=== PATIENT | female | born 1940 | race African-American/Black ===

== ENCOUNTER 2017-11-02 23:11 | Inpatient (IN) | payer BC, MEDICARE ==
[~2017-11-02] VITALS: Ht 165.1 cm; Wt 72.6 kg
[2017-11-03] VITALS (35 sets, daily range): BP systolic 106–134; BP diastolic 51–79
[2017-11-03] MEDS ORDERED: SODIUM CHLORIDE 0.9% 1,000 ML IV ONE (00:33)
[2017-11-03 02:36] LABS: BASOPHILS % 0.2 % (0.0-2.0); HEMATOCRIT. 42.7 % (36.0-48.0); HEMOGLOBIN. 14.1 g/dL (12.0-16.0); LYMPHOCYTES % 1.6 % (20.0-50.0); MEAN CORPUSCULAR HEMOGLOBIN 29.8 pg (28.0-32.0); MEAN CORPUSCULAR VOLUME 90.4 fL (81.0-99.0); MEAN PLATELET VOLUME 8.9 fl (7.4-10.4); MONOCYTES % 9.7 % (2.0-8.0); NEUTROPHILS % 88.5 % (40.0-76.0); PLATELET 159 x1000/uL (130-400); RED BLOOD CELL COUNT 4.72 mill/uL (4.2-5.4); RED CELL DISTRIBUTION WIDTH 15.7 % (11.6-14.6)
[2017-11-03 02:37] LABS: CHLORIDE 108 mEq/L (98-107)
[2017-11-03 02:44] LABS: BETA HYDROXYBUTYRATE 9.5 mMol/L (0.0-0.3); PROTHROMBIN TIME 9.9 sec (9.4-11.6)
[2017-11-03] MEDS ORDERED: SODIUM CHLORIDE 0.9% 1,000 ML IV STA (02:51)
[2017-11-03] MEDS ORDERED: SODIUM CHLORIDE 0.9% 1000ML BAG (SEPSIS BOLUS) IV ONE (03:00)
[2017-11-03] MEDS ORDERED: INSULIN REGULAR (DRIP) 100 UNITS in SODIUM CHLORIDE 0.9% 100 ML IV ONE (03:30)
[2017-11-03 04:15] LABS: CHLORIDE 110 mEq/L (98-107)
[2017-11-03 04:21] LABS: PHOSPHORUS 4.1 mg/dL (2.5-4.9)
[2017-11-03 06:25] LABS: CHLORIDE 113 mEq/L (98-107)
[2017-11-03] MEDS ORDERED: INSULIN REGULAR (DRIP) 100 UNITS in SODIUM CHLORIDE 0.9% 100 ML IV SCH (08:44)
[2017-11-03] MEDS ORDERED: SODIUM CHLORIDE 0.9% 1,000 ML IV SCH (08:45)
[2017-11-03] MEDS ORDERED: ONDANSETRON HCL 4MG/2ML VIAL IV PRN (08:45)
[2017-11-03] MEDS ORDERED: DEXTROSE 50% WATER 50ML SYRINGE IV PRN ×2 (08:45)
[2017-11-03] MEDS ORDERED: ACETAMINOPHEN 325MG TABLET PO PRN (08:45)
[2017-11-03] MEDS: BLOOD SUGAR DIAGNOSTIC STRIP TEST SCH ×15 (09:43→23:00)
[2017-11-03] MEDS: PANTOPRAZOLE SODIUM 40 MG/VIAL IV SCH (09:43)
[2017-11-03] MEDS ORDERED: SODIUM CHLORIDE 0.45% 1,000 ML IV SCH (10:00)
[2017-11-03] MEDS: DEXT 5%/0.45% NACL 1000ML 1,000 ML IV SCH ×2 (10:06→19:56)
[2017-11-03] MEDS ORDERED: LANTUSUD SUBCUT (10:30)
[2017-11-03 10:35] LABS: CHLORIDE 119 mEq/L (98-107)
[2017-11-03 10:41] LABS: PHOSPHORUS 1.2 mg/dL (2.5-4.9)
[2017-11-03] MEDS ORDERED: INSU100I7 SQ (10:48)
[2017-11-03] MEDS ORDERED: LEVO50TA MT (12:55)
[2017-11-03] MEDS ORDERED: POTASSIUM PHOS,M-BASIC-D-BASIC 15 MMOL in DEXT 5% WATER 245 ML IV NR (13:00)
[2017-11-03] MEDS: DOCUSATE SODIUM 100MG CAPSULE PO SCH ×2 (13:12→17:22)
[2017-11-03] MEDS: LEVOTHYROXINE SODIUM 100MCG TABLET PO SCH (13:25)
[2017-11-03] MEDS ORDERED: LACTULOSE 20G/30ML UDC PO PRN (21:00)
[2017-11-04] VITALS (32 sets, daily range): BP systolic 99–130; BP diastolic 44–77
[2017-11-04 00:32] LABS: CLARITY URINE CLOUDY (CLEAR); COLOR URINE YELLOW (YELLOW); KETONES URINE 2+ (NEGATIVE); LEUKOCYTE ESTERASE URINE NEGATIVE (NEGATIVE); NITRITE URINE NEGATIVE (NEGATIVE); OCCULT BLOOD URINE TRACE (NEGATIVE); PH URINE 5.5 (4.5-8.0); PROTEIN URINE 1+ (NEGATIVE); SPECIFIC GRAVITY URINE 1.021 (1.005-1.030)
[2017-11-04 00:49] LABS: *BARBITURATES SCREEN URINE NEGATIVE (NEGATIVE); *BENZODIAZEPINES SCREEN URINE NEGATIVE (NEGATIVE); *COCAINE SCREEN URINE NEGATIVE (NEGATIVE); METHADONE URINE SCREEN NEGATIVE (NEGATIVE); OPIATES URINE SCREEN NEGATIVE (NEGATIVE)
[2017-11-04 00:50] LABS: CANNABINOID URINE SCREEN NEGATIVE (NEGATIVE); PHENCYCLIDINE URINE SCREEN NEGATIVE (NEGATIVE)
[2017-11-04 00:51] LABS: *AMPHETAMINES SCREEN URINE NEGATIVE (NEGATIVE)
[2017-11-04] MEDS: BLOOD SUGAR DIAGNOSTIC STRIP TEST SCH ×17 (01:00→16:24)
[2017-11-04 05:38] LABS: BASOPHILS % 0.3 % (0.0-2.0); EOSINOPHILS % 0.2 % (0.0-5.0); HEMOGLOBIN. 12.4 g/dL (12.0-16.0); LYMPHOCYTES % 7.1 % (20.0-50.0); MEAN CORPUSCULAR HEMOGLOBIN 29.5 pg (28.0-32.0); MONOCYTES % 12.3 % (2.0-8.0); NEUTROPHILS % 80.1 % (40.0-76.0); PLATELET 116 x1000/uL (130-400); RED CELL DISTRIBUTION WIDTH 15.2 % (11.6-14.6)
[2017-11-04 05:45] LABS: CHLORIDE 115 mEq/L (98-107)
[2017-11-04 05:53] LABS: PHOSPHORUS 1.4 mg/dL (2.5-4.9)
[2017-11-04] MEDS: DEXT 5%/0.45% NACL 1000ML 1,000 ML IV SCH ×2 (05:55→16:21)
[2017-11-04] MEDS: LEVOTHYROXINE SODIUM 100MCG TABLET PO SCH (05:56)
[2017-11-04] MEDS: PANTOPRAZOLE SODIUM 40 MG/VIAL IV SCH (09:18)
[2017-11-04] MEDS: DOCUSATE SODIUM 100MG CAPSULE PO SCH ×2 (09:18→17:18)
[2017-11-04] MEDS ORDERED: POTASSIUM PHOS,M-BASIC-D-BASIC 15 MMOL in DEXT 5% WATER 245 ML IV NR (11:00)
[2017-11-04] MEDS ORDERED: MAGNESIUM 2 G PREMIX 50 ML IV NR (11:30)
[2017-11-04 15:03] LABS: CHLORIDE 112 mEq/L (98-107)
[2017-11-04 15:08] LABS: PHOSPHORUS 2.1 mg/dL (2.5-4.9)
[2017-11-04] MEDS ORDERED: DEXTROSE 50% WATER 50ML SYRINGE IV PRN ×2 (17:00→21:15)
[2017-11-04] MEDS ORDERED: INSULIN LISPRO 100 UNITS/ML SUBCUT SCH (17:00)
[2017-11-04] MEDS ORDERED: INSULIN GLARGINE UD 100 UNITS/ML SYR SUBCUT NR (18:00)
[2017-11-04] MEDS ORDERED: BLOOD SUGAR DIAGNOSTIC STRIP TEST SCH (21:00)
[2017-11-04] MEDS ORDERED: INSULIN GLARGINE UD 100 UNITS/ML SYR SUBCUT SCH (21:00)
[2017-11-04 22:20] LABS: AMYLASE 56 IU/L (25-115)
[2017-11-05] VITALS (12 sets, daily range): BP systolic 100–140; BP diastolic 49–73
[2017-11-05] MEDS: BLOOD SUGAR DIAGNOSTIC STRIP TEST SCH ×5 (00:18→20:09)
[2017-11-05] MEDS: INSULIN LISPRO 100 UNITS/ML SUBCUT SCH ×8 (00:22→20:09)
[2017-11-05] MEDS: DEXT 5%/0.45% NACL 1000ML 1,000 ML IV SCH (02:11)
[2017-11-05 05:29] LABS: BASOPHILS % 0.2 % (0.0-2.0); EOSINOPHILS % 0.5 % (0.0-5.0); HEMATOCRIT. 34.9 % (36.0-48.0); HEMOGLOBIN. 11.9 g/dL (12.0-16.0); LYMPHOCYTES % 16.7 % (20.0-50.0); MEAN CORPUSCULAR HEMOGLOBIN 29.7 pg (28.0-32.0); MEAN CORPUSCULAR VOLUME 87.1 fL (81.0-99.0); MEAN PLATELET VOLUME 9.1 fl (7.4-10.4); MONOCYTES % 11.8 % (2.0-8.0); NEUTROPHILS % 70.8 % (40.0-76.0); PLATELET 94 x1000/uL (130-400); RED CELL DISTRIBUTION WIDTH 15.7 % (11.6-14.6)
[2017-11-05] MEDS: LEVOTHYROXINE SODIUM 100MCG TABLET PO SCH (05:36)
[2017-11-05 06:10] LABS: CHLORIDE 109 mEq/L (98-107)
[2017-11-05 06:19] LABS: PHOSPHORUS 1.6 mg/dL (2.5-4.9)
[2017-11-05] MEDS ORDERED: DEXTROSE 50% WATER 50ML SYRINGE IV PRN (08:30)
[2017-11-05] MEDS ORDERED: HEPARIN SODIUM 1,000 UNIT/1ML VIAL IV ONE (09:00)
[2017-11-05] MEDS: DOCUSATE SODIUM 100MG CAPSULE PO SCH ×2 (09:18→17:02)
[2017-11-05] MEDS ORDERED: INSULIN GLARGINE UD 100 UNITS/ML SYR SUBCUT SCH (10:00)
[2017-11-05] MEDS ORDERED: POTASSIUM PHOS,M-BASIC-D-BASIC 20 MMOL in DEXT 5% WATER 250 ML IV SCH (10:00)
[2017-11-05 17:53] LABS: PHOSPHORUS 1.9 mg/dL (2.5-4.9)
[2017-11-05] MEDS: SODIUM CHLORIDE 0.45% 1,000 ML IV SCH (18:40)
[2017-11-05] MEDS: INSULIN GLARGINE UD 100 UNITS/ML SYR SUBCUT SCH (22:22)
[2017-11-06] VITALS: BP 116/62
[2017-11-06 04:00] VITALS: BP 120/60
[2017-11-06] MEDS: LEVOTHYROXINE SODIUM 100MCG TABLET PO SCH (07:06)
[2017-11-06] MEDS: BLOOD SUGAR DIAGNOSTIC STRIP TEST SCH ×4 (07:07→20:44)
[2017-11-06] MEDS: INSULIN LISPRO 100 UNITS/ML SUBCUT SCH ×7 (07:07→20:44)
[2017-11-06] MEDS: SODIUM CHLORIDE 0.45% 1,000 ML IV SCH (07:09)
[2017-11-06 07:21] LABS: CHLORIDE 107 mEq/L (98-107)
[2017-11-06 08:03] VITALS: BP 122/68
[2017-11-06] MEDS ORDERED: POTASSIUM CHLORIDE 20MEQ/PACKET PO SCH (09:00)
[2017-11-06] MEDS: DOCUSATE SODIUM 100MG CAPSULE PO SCH ×2 (09:26→17:00)
[2017-11-06] MEDS: INSULIN GLARGINE UD 100 UNITS/ML SYR SUBCUT SCH ×2 (09:34→22:02)
[2017-11-06] MEDS ORDERED: POTASSIUM PHOS,M-BASIC-D-BASIC 20 MMOL in DEXT 5% WATER 243.3333 ML IV SCH (10:00)
[2017-11-06 12:10] VITALS: BP 115/63
[2017-11-06] MEDS: METOCLOPRAMIDE HCL 10MG TABLET PO SCH ×3 (12:20→21:00)
[2017-11-06] MEDS: POTASSIUM-SODIUM PHOSPHATE POWDER PACKET PO SCH ×2 (14:48→16:43)
[2017-11-06 16:00] VITALS: BP 104/62
[2017-11-06 19:55] LABS: PHOSPHORUS 2.2 mg/dL (2.5-4.9)
[2017-11-06 20:38] VITALS: BP 140/67
[2017-11-07 00:54] VITALS: BP 114/60
[2017-11-07 04:36] VITALS: BP 116/59
[2017-11-07] MEDS: METOCLOPRAMIDE HCL 10MG TABLET PO SCH ×3 (06:10→17:21)
[2017-11-07] MEDS: LEVOTHYROXINE SODIUM 100MCG TABLET PO SCH (06:11)
[2017-11-07] MEDS: BLOOD SUGAR DIAGNOSTIC STRIP TEST SCH ×3 (06:11→17:18)
[2017-11-07] MEDS: INSULIN LISPRO 100 UNITS/ML SUBCUT SCH ×6 (06:14→17:31)
[2017-11-07 07:50] LABS: CHLORIDE 106 mEq/L (98-107)
[2017-11-07 08:00] VITALS: BP 124/58
[2017-11-07] MEDS: POTASSIUM-SODIUM PHOSPHATE POWDER PACKET PO SCH ×2 (08:29→17:21)
[2017-11-07] MEDS: DOCUSATE SODIUM 100MG CAPSULE PO SCH ×2 (08:29→17:21)
[2017-11-07] MEDS: INSULIN GLARGINE UD 100 UNITS/ML SYR SUBCUT SCH (10:56)
[2017-11-07 12:00] VITALS: BP_SYST 157; BP_SYST 159; BP_DIAS 79
[2017-11-07] MEDS ORDERED: BUTALBITAL/ACETAMINOPHEN/CAFFEINE 50/325/40MG TABLET PO NR (12:15)
[2017-11-07] MEDS ORDERED: HYDROCORTISONE 1% RECTAL CREAM 30GM PR PRN (12:30)
[2017-11-07 15:56] VITALS: BP 135/67
[2017-11-07 16:00] VITALS: BP 135/67
== END 2017-11-07 19:50 | disposition home or self-care (01) | DRG 638 ==
LOC: ER 23:11 → MICUSO 11-03 03:12 → EDBEDREQ 11-03 03:35 → ENRESERV 11-03 06:59 → MICUSO 11-04 15:45 → 6WST 11-05 21:00
PROVIDERS: ADMIT Internal Medicine Critical Care Medicine; ATTEND Internal Medicine Critical Care Medicine
DX: E10.10 Type 1 diabetes mellitus with ketoacidosis without coma (principal); E46 Unspecified protein-calorie malnutrition; E10.42 Type 1 diabetes mellitus with diabetic polyneuropathy; K56.7 Ileus, unspecified; E83.39 Other disorders of phosphorus metabolism; E83.42 Hypomagnesemia; E86.0 Dehydration; E03.9 Hypothyroidism, unspecified; E78.5 Hyperlipidemia, unspecified; K59.00 Constipation, unspecified; E87.6 Hypokalemia; Z79.4 Long term (current) use of insulin; Z87.440 Personal history of urinary (tract) infections; Z91.14 Patient's other noncompliance with medication regimen; Z88.2 Allergy status to sulfonamides; Z79.899 Other long term (current) drug therapy; Z68.26 Body mass index [BMI] 26.0-26.9, adult
CPT/HCPCS: 36415; 71045; 74018; 74176; 76700; 80048; 80053; 80305; 81003; 82010; 82150; 82962; 83036; 83605; 83690; 83735; 84100; 84132; 84443; 84478; 85025; 85610; 87040; 87086; 93005; 93970; 96374; 97116; 97162; 99291; A6261; C9113; J1815; J2405; J3475; J3490; J7030; J7040; J7050; J7060; J8597; A4315

== ENCOUNTER 2020-01-26 15:21 | Inpatient (IN) | payer BC, MEDICARE ==
[~2020-01-26] VITALS: Ht 170.2 cm; Wt 61.7 kg
[~2020-01-26 15:21] MED LIST: INSU100I7 SQ; LANTUSUD SUBCUT; LEVO50TA MT; LIDOCAINE HCL/PF 1% 2ML VIAL ONE
[2020-01-26] MEDS ORDERED: SODIUM CHLORIDE 0.9% 500 ML IV ONE (16:04)
[2020-01-26 16:32] LABS: BASOPHILS % 0.2 % (0.0-2.0); HEMATOCRIT. 39.5 % (36.0-48.0); HEMOGLOBIN. 12.8 g/dL (12.0-16.0); LYMPHOCYTES % 13.2 % (20.0-50.0); MEAN CORPUSCULAR HEMOGLOBIN 29.9 pg (28.0-32.0); MEAN CORPUSCULAR VOLUME 92.1 fL (81.0-99.0); MEAN PLATELET VOLUME 9.1 fl (7.4-10.4); NEUTROPHILS % 80.6 % (40.0-76.0); PLATELET 168 x1000/uL (130-400); RED BLOOD CELL COUNT 4.28 mill/uL (4.2-5.4); RED CELL DISTRIBUTION WIDTH 14.4 % (11.6-14.6)
[2020-01-26 16:38] LABS: CHLORIDE 96 mEq/L (98-107)
[2020-01-26 16:40] LABS: PROTHROMBIN TIME 10.5 sec (9.6-11.0)
[2020-01-26 17:21] LABS: BG BASE EXCESS -18.2 mmol/L (-2.0-2.0); BG CARBOXYHEMOGLOBIN 0.2 % (0.5-1.5); BG FRACTION INSPIRED OXYGEN 21; BG HCO3 ACT 7.3 mmol/L (22.0-26.0); BG METHEMOGLOBIN 0.2 % (0.0-1.5); BG OXYHEMOGLOBIN 97.6 % (94.0-97.0); BG PCO2 18.1 mmHg (35.0-45.0); BG PH 7.222 (7.350-7.450); BG PO2 131.2 mmHg (75.0-100.0); BG SAMPLE SITE RIGHT RADIAL; BG TOTAL HEMOGLOBIN 12.3 g/dL (12.0-18.0); BG VENT MODE ROOM AIR
[2020-01-26] MEDS ORDERED: INSULIN REGULAR (DRIP) 100 UNITS in SODIUM CHLORIDE 0.9% 99 ML IV ONE ×2 (17:30→18:00)
[2020-01-26] MEDS ORDERED: SODIUM CHLORIDE 0.9% 1,000 ML IV ONE (17:30)
[2020-01-26] MEDS ORDERED: TRAZODONE HCL 50MG TABLET PO PRN (18:15)
[2020-01-26] MEDS ORDERED: ONDANSETRON HCL 4MG/2ML INJ IV PRN (18:15)
[2020-01-26] MEDS ORDERED: ACETAMINOPHEN 325MG TABLET PO PRN (18:15)
[2020-01-26] MEDS: SODIUM CHLORIDE 0.9% 1,000 ML IV SCH (18:25)
[2020-01-26 18:58] LABS: CLARITY URINE CLEAR (CLEAR); COLOR URINE YELLOW (YELLOW); KETONES URINE 4+ (NEGATIVE); LEUKOCYTE ESTERASE URINE NEGATIVE (NEGATIVE); NITRITE URINE NEGATIVE (NEGATIVE); OCCULT BLOOD URINE NEGATIVE (NEGATIVE); PROTEIN URINE NEGATIVE (NEGATIVE); SPECIFIC GRAVITY URINE 1.024 (1.005-1.030); UROBILINOGEN URINE 0.2 E.U./dL (0.2-1.0)
[2020-01-26] MEDS ORDERED: INSULIN GLARGINE UD 100 UNITS/ML SYR SUBCUT SCH ×2 (19:00→20:00)
[2020-01-26] MEDS: BLOOD SUGAR DIAGNOSTIC STRIP TEST SCH (21:00)
[2020-01-27] VITALS (8 sets, daily range): BP systolic 111–139; BP diastolic 60–76
[2020-01-27 03:39] LABS: BASOPHILS % 0.6 % (0.0-2.0); EOSINOPHILS % 0.2 % (0.0-5.0); HEMATOCRIT. 35.7 % (36.0-48.0); HEMOGLOBIN. 12.2 g/dL (12.0-16.0); LYMPHOCYTES % 12.9 % (20.0-50.0); MEAN CORPUSCULAR HEMOGLOBIN 30.1 pg (28.0-32.0); MEAN CORPUSCULAR VOLUME 87.7 fL (81.0-99.0); MEAN PLATELET VOLUME 8.6 fl (7.4-10.4); MONOCYTES % 7.1 % (2.0-8.0); NEUTROPHILS % 79.2 % (40.0-76.0); PLATELET 158 x1000/uL (130-400); RED BLOOD CELL COUNT 4.07 mill/uL (4.2-5.4)
[2020-01-27 03:43] LABS: CHLORIDE 112 mEq/L (98-107)
[2020-01-27 03:52] LABS: T4 FREE 0.78 ng/dL (0.76-1.46)
[2020-01-27] MEDS: DEXTROSE 50% WATER 50ML SYRINGE IV PRN (06:17)
[2020-01-27] MEDS: BLOOD SUGAR DIAGNOSTIC STRIP TEST SCH ×4 (07:30→20:47)
[2020-01-27] MEDS: LEVOTHYROXINE SODIUM 100MCG TABLET PO SCH (08:14)
[2020-01-27] MEDS: INSULIN LISPRO 100 UNITS/ML SUBCUT SCH ×4 (08:55→21:00)
[2020-01-27] MEDS: HEPARIN 5000 UNITS/ML VIAL SUBCUT SCH ×2 (08:56→20:47)
[2020-01-27] MEDS: SODIUM CHLORIDE 0.9% 1,000 ML IV SCH ×2 (11:13→18:49)
[2020-01-27] MEDS: ASPIRIN 81MG TABLET PO SCH (12:00)
[2020-01-27] MEDS: ATORVASTATIN CALCIUM 20MG TABLET PO SCH ×2 (20:47→20:48)
[2020-01-27] MEDS ORDERED: INSULIN GLARGINE UD 100 UNITS/ML SYR SUBCUT SCH ×3 (22:00)
[2020-01-28] VITALS (12 sets, daily range): BP systolic 116–148; BP diastolic 61–86
[2020-01-28 06:33] LABS: BASOPHILS % 0.4 % (0.0-2.0); EOSINOPHILS % 0.7 % (0.0-5.0); HEMATOCRIT. 36.2 % (36.0-48.0); HEMOGLOBIN. 12.4 g/dL (12.0-16.0); LYMPHOCYTES % 28.3 % (20.0-50.0); MEAN CORPUSCULAR HEMOGLOBIN 29.9 pg (28.0-32.0); MEAN CORPUSCULAR VOLUME 87.7 fL (81.0-99.0); MEAN PLATELET VOLUME 8.7 fl (7.4-10.4); MONOCYTES % 7.9 % (2.0-8.0); NEUTROPHILS % 62.7 % (40.0-76.0); PLATELET 139 x1000/uL (130-400); RED BLOOD CELL COUNT 4.13 mill/uL (4.2-5.4); RED CELL DISTRIBUTION WIDTH 13.9 % (11.6-14.6)
[2020-01-28 06:38] LABS: CHLORIDE 113 mEq/L (98-107)
[2020-01-28] MEDS: LEVOTHYROXINE SODIUM 100MCG TABLET PO SCH (06:41)
[2020-01-28] MEDS: BLOOD SUGAR DIAGNOSTIC STRIP TEST SCH ×4 (07:35→21:25)
[2020-01-28] MEDS: INSULIN LISPRO 100 UNITS/ML SUBCUT SCH ×4 (07:36→21:24)
[2020-01-28] MEDS: ASPIRIN 81MG TABLET PO SCH (09:00)
[2020-01-28] MEDS: SODIUM CHLORIDE 0.9% 1,000 ML IV SCH (09:02)
[2020-01-28] MEDS: HEPARIN 5000 UNITS/ML VIAL SUBCUT SCH ×2 (09:03→21:00)
[2020-01-28] MEDS ORDERED: POTASSIUM CHLORIDE 20MEQ TABLET SR PO SCH ×2 (11:00→16:00)
[2020-01-28] MEDS ORDERED: REGADENOSON 0.4 MG/5 ML IV SCH (11:45)
[2020-01-28] MEDS ORDERED: DOCUSATE SODIUM 100MG CAPSULE PO PRN (15:30)
[2020-01-28] MEDS ORDERED: MAGNESIUM HYDROXIDE 400MG/5ML 30ML UDC PO PRN (15:30)
[2020-01-28] MEDS ORDERED: SENNOSIDES/DOCUSATE SOD 8.6/50MG TABLET PO PRN (15:30)
[2020-01-28] MEDS: ATORVASTATIN CALCIUM 20MG TABLET PO SCH (21:00)
[2020-01-28] MEDS ORDERED: INSULIN GLARGINE UD 100 UNITS/ML SYR SUBCUT SCH (22:00)
[2020-01-29] VITALS (10 sets, daily range): BP systolic 115–147; BP diastolic 43–80
[2020-01-29] MEDS: LEVOTHYROXINE SODIUM 100MCG TABLET PO SCH ×2 (07:30→08:24)
[2020-01-29 07:44] LABS: CHLORIDE 105 mEq/L (98-107)
[2020-01-29 07:46] LABS: BASOPHILS % 0.5 % (0.0-2.0); EOSINOPHILS % 1.6 % (0.0-5.0); HEMATOCRIT. 39.6 % (36.0-48.0); HEMOGLOBIN. 13.4 g/dL (12.0-16.0); LYMPHOCYTES % 30.3 % (20.0-50.0); MEAN CORPUSCULAR HEMOGLOBIN 29.9 pg (28.0-32.0); MEAN CORPUSCULAR VOLUME 88.1 fL (81.0-99.0); MEAN PLATELET VOLUME 9.1 fl (7.4-10.4); MONOCYTES % 4.7 % (2.0-8.0); NEUTROPHILS % 62.9 % (40.0-76.0); PLATELET 132 x1000/uL (130-400); RED BLOOD CELL COUNT 4.49 mill/uL (4.2-5.4); RED CELL DISTRIBUTION WIDTH 14.5 % (11.6-14.6)
[2020-01-29] MEDS: HEPARIN 5000 UNITS/ML VIAL SUBCUT SCH ×2 (08:24→08:27)
[2020-01-29] MEDS: INSULIN LISPRO 100 UNITS/ML SUBCUT SCH ×3 (08:25→18:00)
[2020-01-29] MEDS: ASPIRIN 81MG TABLET PO SCH (08:26)
[2020-01-29] MEDS: BLOOD SUGAR DIAGNOSTIC STRIP TEST SCH ×3 (08:26→17:30)
[2020-01-29] MEDS ORDERED: DOCU-150 PO (12:17)
[2020-01-29] MEDS ORDERED: MOM PO (12:17)
[2020-01-29] MEDS ORDERED: ASPI-1160 PO (12:17)
[2020-01-29] MEDS ORDERED: ATOR20TA PO (12:17)
[2020-01-29] MEDS ORDERED: SENN-3 PO (12:17)
[2020-01-29] MEDS ORDERED: LANTUSUD SUBCUT (12:17)
[2020-01-29] MEDS: DEXTROSE 50% WATER 50ML SYRINGE IV PRN (12:39)
[2020-01-29] MEDS ORDERED: REGADENOSON 0.4 MG/5 ML IV ONE (14:08)
[2020-01-29] MEDS ORDERED: INSULIN GLARGINE UD 100 UNITS/ML SYR SUBCUT SCH (22:00)
== END 2020-01-29 18:10 | disposition home or self-care (01) | DRG 638 ==
LOC: ER 15:21 → MICUSO 18:43 → 5EST 01-27 05:23
PROVIDERS: ADMIT Internal Medicine; ATTEND Internal Medicine
DX: E11.10 Type 2 diabetes mellitus with ketoacidosis without coma (principal); E87.4 Mixed disorder of acid-base balance; E87.1 Hypo-osmolality and hyponatremia; I10 Essential (primary) hypertension; E87.8 Other disorders of electrolyte and fluid balance, not elsewhere classified; E87.5 Hyperkalemia; K31.84 Gastroparesis; E78.5 Hyperlipidemia, unspecified; E11.43 Type 2 diabetes mellitus with diabetic autonomic (poly)neuropathy; E03.9 Hypothyroidism, unspecified; R74.0 Nonspecific elevation of levels of transaminase and lactic acid dehydrogenase [LDH]; E87.6 Hypokalemia; Z88.2 Allergy status to sulfonamides; Z79.4 Long term (current) use of insulin; Z79.899 Other long term (current) drug therapy; Z79.890 Hormone replacement therapy; Z91.14 Patient's other noncompliance with medication regimen; Z79.82 Long term (current) use of aspirin
CPT/HCPCS: 36415; 36600; 71045; 78452; 80053; 81003; 82010; 82375; 82805; 82962; 83036; 83735; 83880; 84439; 84443; 84484; 85025; 93005; 93017; 93306; 96365; 99285; A9500; J1644; J1815; J2785; J3490; J7030; J7050

== ENCOUNTER 2020-03-12 03:37 | Inpatient (IN) | payer BC, MEDICARE ==
[~2020-03-12] VITALS: Ht 157.5 cm; Wt 72.6 kg
[~2020-03-12 03:37] MED LIST changes: +ASPI-1160 PO; +ATOR20TA PO; +DOCU-150 PO; -LIDOCAINE HCL/PF 1% 2ML VIAL ONE; +MOM PO; +SENN-3 PO
[2020-03-12] MEDS ORDERED: SODIUM CHLORIDE 0.9% 1,000 ML IV ONE (03:49)
[2020-03-12 04:22] LABS: BG BASE EXCESS -5.2 mmol/L (-2.0-2.0); BG CARBOXYHEMOGLOBIN 0.4 % (0.5-1.5); BG DEOXYHEMOGLOBIN 2.7 % (0.0-5.0); BG FRACTION INSPIRED OXYGEN 21; BG HCO3 ACT 18.1 mmol/L (22.0-26.0); BG METHEMOGLOBIN 0.3 % (0.0-1.5); BG OXYGEN SATURATION 97.3 % (92.0-98.5); BG OXYHEMOGLOBIN 96.6 % (94.0-97.0); BG PCO2 28.4 mmHg (35.0-45.0); BG PH 7.422 (7.350-7.450); BG PO2 101.7 mmHg (75.0-100.0); BG SAMPLE SITE RIGHT BRACHIAL; BG TOTAL HEMOGLOBIN 11.5 g/dL (12.0-18.0); BG VENT MODE ROOM AIR
[2020-03-12 04:36] LABS: BASOPHILS % 0.3 % (0.0-2.0); EOSINOPHILS % 0.9 % (0.0-5.0); HEMATOCRIT. 34.3 % (36.0-48.0); HEMOGLOBIN. 11.6 g/dL (12.0-16.0); LYMPHOCYTES % 38.5 % (20.0-50.0); MEAN CORPUSCULAR HEMOGLOBIN 30.6 pg (28.0-32.0); MEAN CORPUSCULAR VOLUME 90.7 fL (81.0-99.0); MONOCYTES % 2.9 % (2.0-8.0); NEUTROPHILS % 57.4 % (40.0-76.0); PLATELET 138 x1000/uL (130-400); RED BLOOD CELL COUNT 3.78 mill/uL (4.2-5.4); RED CELL DISTRIBUTION WIDTH 13.7 % (11.6-14.6)
[2020-03-12 04:43] LABS: CHLORIDE 102 mEq/L (98-107)
[2020-03-12 04:47] LABS: PROTHROMBIN TIME 10.4 sec (9.6-11.0)
[2020-03-12 04:52] LABS: BETA HYDROXYBUTYRATE 1.7 mMol/L (0.0-0.3)
[2020-03-12 05:02] LABS: CLARITY URINE CLOUDY (CLEAR); COLOR URINE YELLOW (YELLOW); KETONES URINE 1+ (NEGATIVE); LEUKOCYTE ESTERASE URINE 3+ (NEGATIVE); NITRITE URINE NEGATIVE (NEGATIVE); OCCULT BLOOD URINE TRACE (NEGATIVE); PH URINE 7.5 (4.5-8.0); PROTEIN URINE NEGATIVE (NEGATIVE); SPECIFIC GRAVITY URINE 1.017 (1.005-1.030); UROBILINOGEN URINE 0.2 E.U./dL (0.2-1.0)
[2020-03-12] MEDS: SODIUM CHLORIDE 0.9% 1,000 ML IV SCH ×2 (07:23→17:23)
[2020-03-12] MEDS ORDERED: DOCUSATE SODIUM 100MG CAPSULE PO PRN (07:30)
[2020-03-12] MEDS ORDERED: ONDANSETRON HCL 4MG/2ML INJ IV PRN (07:30)
[2020-03-12] MEDS ORDERED: ACETAMINOPHEN 650MG SUPP PR PRN (07:30)
[2020-03-12] MEDS ORDERED: MAGNESIUM HYDROXIDE 400MG/5ML 30ML UDC PO PRN (07:30)
[2020-03-12] MEDS: LEVOTHYROXINE SODIUM 100MCG TABLET PO SCH (07:50)
[2020-03-12] MEDS ORDERED: DEXTROSE 50% WATER 50ML SYRINGE IV PRN (08:15)
[2020-03-12 08:18] LABS: BASOPHILS % 0.3 % (0.0-2.0); EOSINOPHILS % 0.2 % (0.0-5.0); HEMATOCRIT. 39.4 % (36.0-48.0); HEMOGLOBIN. 13.1 g/dL (12.0-16.0); LYMPHOCYTES % 9.7 % (20.0-50.0); MEAN CORPUSCULAR HEMOGLOBIN 29.8 pg (28.0-32.0); MEAN CORPUSCULAR VOLUME 89.3 fL (81.0-99.0); MEAN PLATELET VOLUME 8.4 fl (7.4-10.4); MONOCYTES % 4.2 % (2.0-8.0); NEUTROPHILS % 85.6 % (40.0-76.0); PLATELET 136 x1000/uL (130-400); RED BLOOD CELL COUNT 4.41 mill/uL (4.2-5.4)
[2020-03-12 08:26] LABS: CHLORIDE 103 mEq/L (98-107)
[2020-03-12] MEDS: INSULIN LISPRO (HIGH DOSE) 100 UNITS/ML SUBCUT SCH ×4 (08:49→22:02)
[2020-03-12] MEDS: ENOXAPARIN 40MG/0.4ML SYR SUBCUT SCH (09:00)
[2020-03-12] MEDS: ASPIRIN 81MG TABLET PO SCH (09:00)
[2020-03-12] MEDS: DOCUSATE SODIUM 100MG CAPSULE PO SCH ×2 (09:00→17:00)
[2020-03-12] MEDS: BLOOD SUGAR DIAGNOSTIC STRIP TEST SCH ×4 (09:59→21:17)
[2020-03-12] MEDS ORDERED: CEFTRIAXONE 2 G PREMIX 50 ML IV SCH (11:00)
[2020-03-12] MEDS: INSULIN GLARGINE UD 100 UNITS/ML SYR SUBCUT SCH ×3 (11:30→22:00)
[2020-03-12 20:00] VITALS: BP 142/76
[2020-03-12 20:30] VITALS: BP 142/76
[2020-03-12] MEDS ORDERED: INSULIN GLARGINE UD 100 UNITS/ML SYR SUBCUT SCH (21:00)
[2020-03-12] MEDS: ATORVASTATIN CALCIUM 20MG TABLET PO SCH (21:00)
[2020-03-12] MEDS ORDERED: DIPHENHYDRAMINE 25MG CAPSULE PO PRN (21:30)
[2020-03-13] VITALS: BP 115/67
[2020-03-13 04:00] VITALS: BP 116/63
[2020-03-13] MEDS: SODIUM CHLORIDE 0.9% 1,000 ML IV SCH (04:17)
[2020-03-13] MEDS ORDERED: INSULIN GLARGINE UD 100 UNITS/ML SYR SUBCUT SCH (06:30)
[2020-03-13] MEDS: INSULIN LISPRO (HIGH DOSE) 100 UNITS/ML SUBCUT SCH ×4 (06:54→22:13)
[2020-03-13] MEDS: BLOOD SUGAR DIAGNOSTIC STRIP TEST SCH ×4 (06:55→20:38)
[2020-03-13] MEDS: LEVOTHYROXINE SODIUM 100MCG TABLET PO SCH (06:55)
[2020-03-13 07:15] LABS: HEMATOCRIT 37.5 % (36.0-48.0); HEMOGLOBIN 12.6 g/dL (12.0-16.0); MEAN CORPUSCULAR HEMOGLOBIN 29.9 pg (28.0-32.0); MEAN CORPUSCULAR VOLUME 89.1 fL (81.0-99.0); PLATELET 139 x1000/uL (130-400); RED CELL DISTRIBUTION WIDTH 13.8 % (11.6-14.6)
[2020-03-13 07:29] LABS: CHLORIDE 107 mEq/L (98-107)
[2020-03-13 08:00] VITALS: BP 140/66
[2020-03-13] MEDS: ASPIRIN 81MG TABLET PO SCH (09:00)
[2020-03-13] MEDS: ENOXAPARIN 40MG/0.4ML SYR SUBCUT SCH (09:11)
[2020-03-13] MEDS: CEFTRIAXONE 2 G in DEXTROSE 5% WATER 50 ML IV SCH (09:11)
[2020-03-13] MEDS: DOCUSATE SODIUM 100MG CAPSULE PO SCH ×2 (09:11→17:21)
[2020-03-13] MEDS: INSULIN GLARGINE UD 100 UNITS/ML SYR SUBCUT SCH ×2 (09:36→23:54)
[2020-03-13 12:00] VITALS: BP 117/62
[2020-03-13 16:00] VITALS: BP 139/76
[2020-03-13 16:19] LABS: CREATINE KINASE MB FRACTION 1.5 ng/mL (0.5-3.6)
[2020-03-13] MEDS: METFORMIN HCL 500MG TABLET PO SCH (17:02)
[2020-03-13 20:00] VITALS: BP 138/69
[2020-03-13] MEDS: ATORVASTATIN CALCIUM 20MG TABLET PO SCH ×2 (20:38→20:44)
[2020-03-14] VITALS: BP 147/90
[2020-03-14] MEDS: SODIUM CHLORIDE 0.9% 1,000 ML IV SCH ×2 (00:32→00:39)
[2020-03-14 04:00] VITALS: BP 121/74
[2020-03-14] MEDS: BLOOD SUGAR DIAGNOSTIC STRIP TEST SCH ×3 (06:16→18:08)
[2020-03-14] MEDS: LEVOTHYROXINE SODIUM 100MCG TABLET PO SCH (06:16)
[2020-03-14] MEDS: METFORMIN HCL 500MG TABLET PO SCH (06:17)
[2020-03-14] MEDS: INSULIN LISPRO (HIGH DOSE) 100 UNITS/ML SUBCUT SCH ×3 (06:57→18:08)
[2020-03-14 08:00] VITALS: BP 116/60
[2020-03-14] MEDS: ASPIRIN 81MG TABLET PO SCH ×2 (08:58→09:00)
[2020-03-14] MEDS: ENOXAPARIN 40MG/0.4ML SYR SUBCUT SCH (08:59)
[2020-03-14] MEDS: DOCUSATE SODIUM 100MG CAPSULE PO SCH (08:59)
[2020-03-14 09:29] LABS: BASOPHILS % 0.6 % (0.0-2.0); EOSINOPHILS % 1.3 % (0.0-5.0); HEMATOCRIT. 41.3 % (36.0-48.0); HEMOGLOBIN. 13.8 g/dL (12.0-16.0); LYMPHOCYTES % 27.9 % (20.0-50.0); MEAN CORPUSCULAR HEMOGLOBIN 29.7 pg (28.0-32.0); MEAN CORPUSCULAR VOLUME 88.9 fL (81.0-99.0); MEAN PLATELET VOLUME 8.6 fl (7.4-10.4); MONOCYTES % 5.7 % (2.0-8.0); NEUTROPHILS % 64.5 % (40.0-76.0); PLATELET 163 x1000/uL (130-400); RED BLOOD CELL COUNT 4.64 mill/uL (4.2-5.4); RED CELL DISTRIBUTION WIDTH 13.9 % (11.6-14.6)
[2020-03-14 09:30] LABS: CHLORIDE 107 mEq/L (98-107)
[2020-03-14 09:40] LABS: T4 FREE 0.78 ng/dL (0.76-1.46)
[2020-03-14 12:00] VITALS: BP 76/40
[2020-03-14] MEDS: INSULIN GLARGINE UD 100 UNITS/ML SYR SUBCUT SCH (12:49)
[2020-03-14] MEDS: CEFTRIAXONE 2 G in DEXTROSE 5% WATER 50 ML IV SCH (12:50)
[2020-03-14] MEDS ORDERED: LANC1COM2 MC (13:17)
[2020-03-14] MEDS ORDERED: INSLIS SUBCUT (13:17)
[2020-03-14] MEDS ORDERED: ATOR20TA MT (13:17)
[2020-03-14] MEDS ORDERED: FLAS1EAC2 TP (13:17)
[2020-03-14] MEDS ORDERED: LEVO100T MT (13:17)
[2020-03-14] MEDS ORDERED: INSU100I28 SQ (13:17)
[2020-03-14] MEDS ORDERED: CIPR-213 MT (13:17)
[2020-03-14] MEDS ORDERED: ASPI-1497 MT (13:17)
[2020-03-14 16:00] VITALS: BP 144/73
[2020-03-14 16:48] VITALS: BP 144/73
== END 2020-03-14 18:18 | disposition home or self-care (01) | DRG 637 ==
LOC: ER 03:56 → UNDOADMIN 05:31 → 6EST 05:31 → ENRESERV 07:28 → CANRESERV 07:28 → EDBEDREQSVC 08:41 → ENRESERV 19:56 → 6EST 03-13 05:31 → 8WST 03-13 22:52
PROVIDERS: ADMIT Ophthalmology; ATTEND Ophthalmology
DX: E10.65 Type 1 diabetes mellitus with hyperglycemia (principal); I50.33 Acute on chronic diastolic (congestive) heart failure; I21.4 Non-ST elevation (NSTEMI) myocardial infarction; E87.1 Hypo-osmolality and hyponatremia; G93.40 Encephalopathy, unspecified; I42.9 Cardiomyopathy, unspecified; N39.0 Urinary tract infection, site not specified; I95.9 Hypotension, unspecified; F99 Mental disorder, not otherwise specified; D64.9 Anemia, unspecified; E03.9 Hypothyroidism, unspecified; E78.5 Hyperlipidemia, unspecified; I11.0 Hypertensive heart disease with heart failure; I25.10 Atherosclerotic heart disease of native coronary artery without angina pectoris; Z79.4 Long term (current) use of insulin; Z79.899 Other long term (current) drug therapy; Z88.2 Allergy status to sulfonamides; Z79.82 Long term (current) use of aspirin
CPT/HCPCS: 36415; 36600; 71045; 80048; 80053; 80061; 81003; 82010; 82375; 82550; 82553; 82805; 82962; 83036; 83605; 84145; 84439; 84443; 84481; 84484; 85025; 85027; 93005; 93306; 97116; 97161; 99291; J0696; J1650; J1815; J7030; J7060

== ENCOUNTER 2020-05-10 16:53 | Inpatient (IN) | payer BC, MEDICARE ==
[~2020-05-10] VITALS: Ht 167.6 cm; Wt 69.1 kg
[~2020-05-10 16:53] MED LIST changes: +ASPI-1497 MT; +ATOR20TA MT; +CIPR-213 MT; +FLAS1EAC2 TP; +INSLIS SUBCUT; +INSU100I28 SQ; +LANC1COM2 MC; -LANTUSUD SUBCUT; +LEVO100T MT; -SENN-3 PO
[2020-05-10] MEDS ORDERED: SODIUM CHLORIDE 0.9% 1,000 ML IV ONE ×2 (17:30→19:00)
[2020-05-10 18:08] LABS: BASOPHILS % 0.5 % (0.0-2.0); EOSINOPHILS % 1.2 % (0.0-5.0); HEMATOCRIT. 39.2 % (36.0-48.0); HEMOGLOBIN. 13.1 g/dL (12.0-16.0); LYMPHOCYTES % 18.5 % (20.0-50.0); MEAN CORPUSCULAR HEMOGLOBIN 29.9 pg (28.0-32.0); MEAN CORPUSCULAR VOLUME 89.5 fL (81.0-99.0); MEAN PLATELET VOLUME 10.2 fl (7.4-10.4); MONOCYTES % 5.3 % (2.0-8.0); NEUTROPHILS % 74.5 % (40.0-76.0); PLATELET 139 x1000/uL (130-400); RED BLOOD CELL COUNT 4.38 mill/uL (4.2-5.4); RED CELL DISTRIBUTION WIDTH 13.3 % (11.6-14.6)
[2020-05-10 18:17] LABS: CHLORIDE 96 mEq/L (98-107)
[2020-05-10 18:23] LABS: PROTHROMBIN TIME 10.1 sec (9.6-11.0)
[2020-05-10] MEDS ORDERED: INSULIN REGULAR (DRIP) 100 UNITS in SODIUM CHLORIDE 0.9% 99 ML IV ONE ×2 (20:00→20:30)
[2020-05-10] MEDS ORDERED: INSULIN REGULAR 0.5UNIT/ML SYR(NEO) IV ONE (20:00)
[2020-05-10] MEDS ORDERED: INSULIN REGULAR (HUMULIN R) 300UNITS/3ML IV SCH (20:15)
[2020-05-10 21:10] LABS: CLARITY URINE CLEAR (CLEAR); COLOR URINE YELLOW (YELLOW); KETONES URINE 1+ (NEGATIVE); LEUKOCYTE ESTERASE URINE NEGATIVE (NEGATIVE); NITRITE URINE NEGATIVE (NEGATIVE); OCCULT BLOOD URINE NEGATIVE (NEGATIVE); PROTEIN URINE NEGATIVE (NEGATIVE); SPECIFIC GRAVITY URINE 1.033 (1.005-1.030); UROBILINOGEN URINE 0.2 E.U./dL (0.2-1.0)
[2020-05-11] VITALS (8 sets, daily range): BP systolic 119–133; BP diastolic 60–84
[2020-05-11] MEDS ORDERED: ACETAMINOPHEN 325MG TABLET PO PRN (00:30)
[2020-05-11] MEDS: SODIUM CHLORIDE 0.9% 1,000 ML IV SCH ×3 (01:20→20:51)
[2020-05-11] MEDS ORDERED: INSULIN REGULAR (HUMULIN R) 300UNITS/3ML SUBCUT ONE (07:05)
[2020-05-11] MEDS ORDERED: DEXTROSE 50% WATER 50ML SYRINGE IV PRN ×2 (07:15→12:45)
[2020-05-11] MEDS ORDERED: INSULIN REGULAR HUMAN (HIGH DOSE) 100 UNITS/ML 3ML VIAL SUBCUT SCH (08:20)
[2020-05-11] MEDS: BLOOD SUGAR DIAGNOSTIC STRIP TEST SCH ×4 (09:00→20:53)
[2020-05-11] MEDS: ASPIRIN 81MG EC TABLET PO SCH (09:00)
[2020-05-11] MEDS: DOCUSATE SODIUM 100MG CAPSULE PO SCH ×2 (09:39→16:39)
[2020-05-11] MEDS: LEVOTHYROXINE SODIUM 100MCG TABLET PO SCH (09:39)
[2020-05-11] MEDS: ENOXAPARIN 40MG/0.4ML SYR SUBCUT SCH (09:40)
[2020-05-11] MEDS ORDERED: INSULIN GLARGINE UD 100 UNITS/ML SYR SUBCUT SCH ×2 (10:00→23:00)
[2020-05-11] MEDS ORDERED: HYDROCODONE/ACETAMINOPHEN 5/325MG TABLET PO PRN (13:30)
[2020-05-11] MEDS ORDERED: LORAZEPAM 2MG/ML CPJ IV PRN (13:30)
[2020-05-11] MEDS ORDERED: IPRATROPIUM/ALBUTEROL 0.5-3(2.5)MG/3ML NEB HHN PRN (13:30)
[2020-05-11] MEDS ORDERED: LACTULOSE 20G/30ML UDC PO PRN (13:30)
[2020-05-11] MEDS ORDERED: BISACODYL 10MG SUPP PR PRN (13:30)
[2020-05-11] MEDS: INSULIN LISPRO 100 UNITS/ML SUBCUT SCH ×3 (13:46→20:52)
[2020-05-11] MEDS: LOSARTAN POTASSIUM 25 MG TABLET PO SCH (14:35)
[2020-05-11] MEDS ORDERED: BLOOD SUGAR DIAGNOSTIC STRIP TEST SCH (16:50)
[2020-05-11 18:06] LABS: BASOPHILS % 0.4 % (0.0-2.0); EOSINOPHILS % 1.5 % (0.0-5.0); HEMATOCRIT. 37.5 % (36.0-48.0); HEMOGLOBIN. 12.8 g/dL (12.0-16.0); LYMPHOCYTES % 29.1 % (20.0-50.0); MEAN CORPUSCULAR HEMOGLOBIN 30.5 pg (28.0-32.0); MEAN CORPUSCULAR VOLUME 89.6 fL (81.0-99.0); MEAN PLATELET VOLUME 9.7 fl (7.4-10.4); MONOCYTES % 5.9 % (2.0-8.0); NEUTROPHILS % 63.1 % (40.0-76.0); PLATELET 141 x1000/uL (130-400); RED BLOOD CELL COUNT 4.19 mill/uL (4.2-5.4); RED CELL DISTRIBUTION WIDTH 13.2 % (11.6-14.6)
[2020-05-11 18:18] LABS: CHLORIDE 104 mEq/L (98-107)
[2020-05-11 18:25] LABS: LDL CHOLESTEROL 95 mg/dL (5-100)
[2020-05-11 18:26] LABS: HDL CHOLESTEROL 71 mg/dL (40-59)
[2020-05-11 18:27] LABS: T4 FREE 0.88 ng/dL (0.76-1.46)
[2020-05-11] MEDS: METOPROLOL TARTRATE 25MG TABLET PO SCH (20:51)
[2020-05-11] MEDS ORDERED: ATORVASTATIN CALCIUM 20MG TABLET PO SCH (21:00)
[2020-05-12] VITALS (8 sets, daily range): BP systolic 114–140; BP diastolic 61–93
[2020-05-12 05:59] LABS: BASOPHILS % 0.4 % (0.0-2.0); EOSINOPHILS % 2.2 % (0.0-5.0); HEMATOCRIT. 35.3 % (36.0-48.0); HEMOGLOBIN. 12.1 g/dL (12.0-16.0); LYMPHOCYTES % 35.5 % (20.0-50.0); MEAN CORPUSCULAR HEMOGLOBIN 30.2 pg (28.0-32.0); MEAN CORPUSCULAR VOLUME 88.4 fL (81.0-99.0); MEAN PLATELET VOLUME 9.5 fl (7.4-10.4); MONOCYTES % 7.1 % (2.0-8.0); NEUTROPHILS % 54.8 % (40.0-76.0); PLATELET 133 x1000/uL (130-400); RED CELL DISTRIBUTION WIDTH 13.7 % (11.6-14.6)
[2020-05-12] MEDS: LEVOTHYROXINE SODIUM 100MCG TABLET PO SCH (06:21)
[2020-05-12] MEDS: SODIUM CHLORIDE 0.9% 1,000 ML IV SCH (06:22)
[2020-05-12] MEDS: BLOOD SUGAR DIAGNOSTIC STRIP TEST SCH ×2 (06:22→11:51)
[2020-05-12 06:35] LABS: CHLORIDE 109 mEq/L (98-107)
[2020-05-12 06:43] LABS: CREATINE KINASE 47 IU/L (26-192)
[2020-05-12 06:45] LABS: CREATINE KINASE MB FRACTION 1.4 ng/mL (0.5-3.6)
[2020-05-12] MEDS: INSULIN LISPRO 100 UNITS/ML SUBCUT SCH ×2 (08:21→12:27)
[2020-05-12] MEDS: METOPROLOL TARTRATE 25MG TABLET PO SCH (08:21)
[2020-05-12] MEDS: LOSARTAN POTASSIUM 25 MG TABLET PO SCH (08:21)
[2020-05-12] MEDS: DOCUSATE SODIUM 100MG CAPSULE PO SCH (08:21)
[2020-05-12] MEDS: ASPIRIN 81MG EC TABLET PO SCH (08:22)
[2020-05-12] MEDS: ENOXAPARIN 40MG/0.4ML SYR SUBCUT SCH (08:22)
[2020-05-12] MEDS ORDERED: BLOO-1465 MT (13:38)
[2020-05-12] MEDS ORDERED: INSULIN GLARGINE UD 100 UNITS/ML SYR SUBCUT NR (14:30)
[2020-05-12] MEDS ORDERED: INSULIN GLARGINE UD 100 UNITS/ML SYR SUBCUT SCH (22:00)
== END 2020-05-12 16:25 | disposition home or self-care (01) | DRG 280 ==
LOC: ER 16:53 → 3WST 23:01 → EDBEDREQTM 23:04 → EDBEDREQ 23:04 → ENRESERV 05-11 07:57
PROVIDERS: ADMIT Ophthalmology; ATTEND Ophthalmology
DX: I21.4 Non-ST elevation (NSTEMI) myocardial infarction (principal); I50.33 Acute on chronic diastolic (congestive) heart failure; E87.1 Hypo-osmolality and hyponatremia; E87.2 Acidosis; I42.9 Cardiomyopathy, unspecified; E11.65 Type 2 diabetes mellitus with hyperglycemia; E03.9 Hypothyroidism, unspecified; E78.00 Pure hypercholesterolemia, unspecified; E78.5 Hyperlipidemia, unspecified; I11.0 Hypertensive heart disease with heart failure; J45.909 Unspecified asthma, uncomplicated; Z79.4 Long term (current) use of insulin; Z79.890 Hormone replacement therapy; Z83.3 Family history of diabetes mellitus; Z91.14 Patient's other noncompliance with medication regimen; Z91.19 Patient's noncompliance with other medical treatment and regimen; Z88.2 Allergy status to sulfonamides; Z79.82 Long term (current) use of aspirin; Z79.2 Long term (current) use of antibiotics; Z79.899 Other long term (current) drug therapy
CPT/HCPCS: 36415; 71045; 80048; 80053; 80061; 81003; 82550; 82553; 82962; 83036; 83605; 84145; 84439; 84443; 84484; 85025; 93005; 93306; 99291; J1650; J1815; J7030; J7050

== ENCOUNTER 2020-08-29 18:20 | Inpatient (IN) | payer BC, MEDICARE ==
[~2020-08-29] VITALS: Ht 167.6 cm; Wt 64.0 kg
[2020-08-29] MEDS: SODIUM CHLORIDE 0.9% 1,000 ML IV SCH (02:00)
[~2020-08-29 18:20] MED LIST changes: -ASPI-1497 MT; -ATOR20TA MT; +BLOO-1465 MT; -CIPR-213 MT; -LEVO100T MT
[2020-08-29] MEDS ORDERED: SODIUM CHLORIDE 0.9% 1,000 ML IV ONE ×2 (19:15→21:15)
[2020-08-29 21:30] LABS: HEMATOCRIT. 40.2 % (36.0-48.0); HEMOGLOBIN. 12.8 g/dL (12.0-16.0); MEAN CORPUSCULAR HEMOGLOBIN 28.8 pg (28.0-32.0); MEAN CORPUSCULAR VOLUME 90.9 fL (81.0-99.0); MEAN PLATELET VOLUME 9.2 fl (7.4-10.4); PLATELET 157 x1000/uL (130-400); RED BLOOD CELL COUNT 4.43 mill/uL (4.2-5.4); RED CELL DISTRIBUTION WIDTH 14.6 % (11.6-14.6)
[2020-08-29 21:37] LABS: CHLORIDE 94 mEq/L (98-107)
[2020-08-29 21:48] LABS: PLATELET ESTIMATE NORMAL
[2020-08-29 21:52] LABS: CLARITY URINE CLEAR (CLEAR); COLOR URINE YELLOW (YELLOW); KETONES URINE 3+ (NEGATIVE); LEUKOCYTE ESTERASE URINE NEGATIVE (NEGATIVE); NITRITE URINE NEGATIVE (NEGATIVE); OCCULT BLOOD URINE NEGATIVE (NEGATIVE); PROTEIN URINE NEGATIVE (NEGATIVE); SPECIFIC GRAVITY URINE 1.026 (1.005-1.030); UROBILINOGEN URINE 0.2 E.U./dL (0.2-1.0)
[2020-08-29 22:03] LABS: BETA HYDROXYBUTYRATE 12.4 mMol/L (0.0-0.3)
[2020-08-29] MEDS ORDERED: SODIUM CHLORIDE 0.9% 1,000 ML IV STA (22:06)
[2020-08-29] MEDS ORDERED: SODIUM BICARBONATE 8.4% 1 MEQ/ML 50ML SYR IV ONE (22:15)
[2020-08-29] MEDS ORDERED: SODIUM POLYSTYRENE SULFONATE 15 G/60 ML BOT PO ONE (22:15)
[2020-08-29] MEDS ORDERED: INSULIN REGULAR (DRIP) 100 UNITS in SODIUM CHLORIDE 0.9% 100 ML IV ONE (23:00)
[2020-08-29] MEDS ORDERED: INSULIN REGULAR (DRIP) 100 UNITS in SODIUM CHLORIDE 0.9% 100 ML IV SCH (23:15)
[2020-08-29] MEDS ORDERED: ACETAMINOPHEN 650MG SUPP PR PRN (23:15)
[2020-08-29] MEDS ORDERED: ONDANSETRON HCL 4MG/2ML INJ IV PRN (23:15)
[2020-08-29] MEDS ORDERED: DEXTROSE 50% WATER 50ML SYRINGE IV PRN ×2 (23:45)
[2020-08-29 23:49] LABS: CHLORIDE 96 mEq/L (98-107)
[2020-08-30] VITALS (36 sets, daily range): BP systolic 91–120; BP diastolic 46–78
[2020-08-30] MEDS ORDERED: LEVOFLOXACIN 500MG PREMIX 100 ML IV NR
[2020-08-30] MEDS ORDERED: INSULIN REGULAR (DRIP) 100 UNITS in SODIUM CHLORIDE 0.9% 99 ML IV SCH
[2020-08-30 00:13] LABS: BETA HYDROXYBUTYRATE 11.9 mMol/L (0.0-0.3)
[2020-08-30 00:18] LABS: BG BASE EXCESS -16.7 mmol/L (-2.0-2.0); BG CARBOXYHEMOGLOBIN 0.3 % (0.5-1.5); BG DEOXYHEMOGLOBIN 2.4 % (0.0-5.0); BG FRACTION INSPIRED OXYGEN 21; BG HCO3 ACT 8.4 mmol/L (22.0-26.0); BG METHEMOGLOBIN 0.1 % (0.0-1.5); BG OXYGEN SATURATION 97.6 % (92.0-98.5); BG OXYHEMOGLOBIN 97.2 % (94.0-97.0); BG PCO2 19.4 mmHg (35.0-45.0); BG PH 7.253 (7.350-7.450); BG PO2 127.7 mmHg (75.0-100.0); BG SAMPLE SITE RIGHT RADIAL; BG TOTAL HEMOGLOBIN 12.3 g/dL (12.0-18.0); BG VENT MODE ROOM AIR
[2020-08-30 00:24] LABS: PHOSPHORUS 5.3 mg/dL (2.5-4.9)
[2020-08-30] MEDS: BLOOD SUGAR DIAGNOSTIC STRIP TEST SCH ×15 (00:30→20:37)
[2020-08-30 02:03] LABS: CHLORIDE 102 mEq/L (98-107)
[2020-08-30 02:08] LABS: PHOSPHORUS 4.6 mg/dL (2.5-4.9)
[2020-08-30] MEDS ORDERED: INSULIN REGULAR (DRIP) 100 UNITS in SODIUM CHLORIDE 0.9% 100 ML IV SCH (03:00)
[2020-08-30] MEDS ORDERED: SODIUM BICARBONATE 8.4% 1 MEQ/ML 50ML SYR IV SCH (04:00)
[2020-08-30 04:16] LABS: BASOPHILS % 0.2 % (0.0-2.0); HEMATOCRIT. 36.3 % (36.0-48.0); HEMOGLOBIN. 11.8 g/dL (12.0-16.0); LYMPHOCYTES % 7.4 % (20.0-50.0); MEAN CORPUSCULAR HEMOGLOBIN 29.4 pg (28.0-32.0); MEAN CORPUSCULAR VOLUME 90.3 fL (81.0-99.0); MEAN PLATELET VOLUME 8.5 fl (7.4-10.4); MONOCYTES % 5.1 % (2.0-8.0); NEUTROPHILS % 87.3 % (40.0-76.0); PLATELET 138 x1000/uL (130-400); RED BLOOD CELL COUNT 4.02 mill/uL (4.2-5.4); RED CELL DISTRIBUTION WIDTH 14.5 % (11.6-14.6)
[2020-08-30 04:23] LABS: CHLORIDE 107 mEq/L (98-107)
[2020-08-30 04:29] LABS: PHOSPHORUS 2.9 mg/dL (2.5-4.9)
[2020-08-30 04:30] LABS: BETA HYDROXYBUTYRATE 7.4 mMol/L (0.0-0.3)
[2020-08-30] MEDS: INSULIN REGULAR (DRIP) 100 UNITS in SODIUM CHLORIDE 0.9% 99 ML IV SCH ×2 (05:28→14:31)
[2020-08-30] MEDS: SODIUM CHLORIDE 0.9% 1,000 ML IV SCH (05:29)
[2020-08-30] MEDS: LEVOTHYROXINE SODIUM 100MCG TABLET PO SCH (07:50)
[2020-08-30] MEDS: ENOXAPARIN 40MG/0.4ML SYR SUBCUT SCH (08:45)
[2020-08-30] MEDS: ASPIRIN 81MG TABLET PO SCH (08:45)
[2020-08-30 08:55] LABS: CHLORIDE 107 mEq/L (98-107)
[2020-08-30 09:02] LABS: BETA HYDROXYBUTYRATE 7.7 mMol/L (0.0-0.3)
[2020-08-30] MEDS ORDERED: PANTOPRAZOLE SODIUM 40 MG/VIAL IV SCH (11:00)
[2020-08-30] MEDS ORDERED: DEXT 5%/0.45% NACL 1000ML 1,000 ML IV SCH (11:00)
[2020-08-30] MEDS ORDERED: POTASSIUM PHOS,M-BASIC-D-BASIC 20 MMOL in DEXT 5% WATER 243.3333 ML IV NR ×2 (15:00→15:30)
[2020-08-30 17:10] LABS: CHLORIDE 111 mEq/L (98-107)
[2020-08-30] MEDS ORDERED: DEXTROSE 50% WATER 50ML SYRINGE IV PRN ×2 (18:00)
[2020-08-30] MEDS: FAMOTIDINE 20MG/2ML VIAL IV SCH (20:26)
[2020-08-30] MEDS: ATORVASTATIN CALCIUM 20MG TABLET PO SCH ×2 (20:26→20:28)
[2020-08-30] MEDS: INSULIN LISPRO 100 UNITS/ML SUBCUT SCH (20:44)
[2020-08-30] MEDS ORDERED: LEVOFLOXACIN 250MG PREMIX 50 ML IV SCH ×2 (21:00)
[2020-08-30] MEDS: INSULIN GLARGINE UD 100 UNITS/ML SYR SUBCUT SCH (21:06)
[2020-08-30] MEDS ORDERED: POTASSIUM CHLORIDE 20MEQ TABLET SR PO NR (22:30)
[2020-08-31] VITALS: BP 99/49
[2020-08-31 04:00] VITALS: BP 103/52
[2020-08-31] MEDS: BLOOD SUGAR DIAGNOSTIC STRIP TEST SCH ×2 (07:13→12:11)
[2020-08-31] MEDS: LEVOTHYROXINE SODIUM 100MCG TABLET PO SCH (07:13)
[2020-08-31] MEDS: INSULIN LISPRO 100 UNITS/ML SUBCUT SCH ×2 (07:20→12:37)
[2020-08-31 08:00] VITALS: BP 109/61
[2020-08-31] MEDS: ASPIRIN 81MG TABLET PO SCH ×2 (09:00→09:11)
[2020-08-31] MEDS ORDERED: LIDOCAINE HCL/PF 1% 2ML VIAL ONE (09:00)
[2020-08-31] MEDS: FAMOTIDINE 20MG/2ML VIAL IV SCH ×2 (09:00→09:11)
[2020-08-31] MEDS: ENOXAPARIN 40MG/0.4ML SYR SUBCUT SCH (09:11)
[2020-08-31] MEDS: INSULIN GLARGINE UD 100 UNITS/ML SYR SUBCUT SCH (09:11)
[2020-08-31] MEDS ORDERED: INSU100I28 SQ (11:01)
[2020-08-31 11:11] LABS: BASOPHILS % 0.4 % (0.0-2.0); EOSINOPHILS % 0.4 % (0.0-5.0); HEMATOCRIT. 38.3 % (36.0-48.0); HEMOGLOBIN. 12.7 g/dL (12.0-16.0); LYMPHOCYTES % 22.7 % (20.0-50.0); MEAN CORPUSCULAR VOLUME 87.4 fL (81.0-99.0); MEAN PLATELET VOLUME 8.9 fl (7.4-10.4); MONOCYTES % 5.3 % (2.0-8.0); NEUTROPHILS % 71.2 % (40.0-76.0); PLATELET 147 x1000/uL (130-400); RED BLOOD CELL COUNT 4.38 mill/uL (4.2-5.4); RED CELL DISTRIBUTION WIDTH 14.5 % (11.6-14.6)
[2020-08-31 11:17] LABS: CHLORIDE 108 mEq/L (98-107)
[2020-08-31 11:23] LABS: PHOSPHORUS 2.2 mg/dL (2.5-4.9)
[2020-08-31 12:00] VITALS: BP 112/59
[2020-08-31 12:03] LABS: BG CARBOXYHEMOGLOBIN 0.4 % (0.5-1.5); BG DEOXYHEMOGLOBIN 2.3 % (0.0-5.0); BG FRACTION INSPIRED OXYGEN 21; BG HCO3 ACT 23.5 mmol/L (22.0-26.0); BG METHEMOGLOBIN 0.3 % (0.0-1.5); BG OXYGEN SATURATION 97.7 % (92.0-98.5); BG PCO2 31.1 mmHg (35.0-45.0); BG PH 7.497 (7.350-7.450); BG PO2 106.8 mmHg (75.0-100.0); BG SAMPLE SITE RIGHT BRACHIAL; BG TOTAL HEMOGLOBIN 12.3 g/dL (12.0-18.0); BG VENT MODE ROOM AIR
[2020-08-31] MEDS ORDERED: POTASSIUM CHLORIDE 20MEQ TABLET SR PO NR (12:15)
[2020-08-31 13:34] VITALS: BP 112/59
== END 2020-08-31 14:47 | disposition home or self-care (01) | DRG 638 ==
LOC: ER 18:20 → 5EST 22:09 → EDBEDREQ 22:11 → EDBEDREQSVC 22:12 → ENRESERV 08-30 08:15 → 6EST 08-30 22:10
PROVIDERS: ADMIT Ophthalmology; ATTEND Ophthalmology
DX: E11.10 Type 2 diabetes mellitus with ketoacidosis without coma (principal); E44.1 Mild protein-calorie malnutrition; E87.1 Hypo-osmolality and hyponatremia; E03.9 Hypothyroidism, unspecified; E87.5 Hyperkalemia; G90.8 Other disorders of autonomic nervous system; E87.8 Other disorders of electrolyte and fluid balance, not elsewhere classified; Z91.19 Patient's noncompliance with other medical treatment and regimen; Z88.2 Allergy status to sulfonamides; Z79.4 Long term (current) use of insulin; Z68.22 Body mass index [BMI] 22.0-22.9, adult; Z79.899 Other long term (current) drug therapy
CPT/HCPCS: 36415; 36600; 71045; 80048; 80053; 81003; 82010; 82375; 82805; 82962; 83036; 83735; 84100; 84484; 85025; 93005; 93970; 97162; 99291; C9113; J1650; J1815; J1956; J3490; J7030; J7050; J7060

== ENCOUNTER 2020-11-17 15:12 | Inpatient (IN) | payer BC, MEDICARE ==
[~2020-11-17] VITALS: Ht 172.7 cm; Wt 73.9 kg
[2020-11-17] MEDS ORDERED: SODIUM CHLORIDE 0.9% 1,000 ML IV ONE (15:30)
[2020-11-17 15:58] LABS: BASOPHILS % 0.2 % (0.0-2.0); HEMATOCRIT. 40.6 % (36.0-48.0); HEMOGLOBIN. 11.4 g/dL (12.0-16.0); LYMPHOCYTES % 8.2 % (20.0-50.0); MEAN CORPUSCULAR VOLUME 103.2 fL (81.0-99.0); MEAN PLATELET VOLUME 9.9 fl (7.4-10.4); MONOCYTES % 6.7 % (2.0-8.0); NEUTROPHILS % 84.9 % (40.0-76.0); PLATELET 185 x1000/uL (130-400); RED BLOOD CELL COUNT 3.93 mill/uL (4.2-5.4); RED CELL DISTRIBUTION WIDTH 14.8 % (11.6-14.6)
[2020-11-17 16:04] LABS: CHLORIDE 91 mEq/L (98-107)
[2020-11-17 16:15] LABS: BETA HYDROXYBUTYRATE 9.9 mMol/L (0.0-0.3)
[2020-11-17] MEDS ORDERED: INSULIN REGULAR (DRIP) 100 UNITS in SODIUM CHLORIDE 0.9% 99 ML IV ONE ×2 (16:30→16:45)
[2020-11-17 17:29] LABS: CLARITY URINE CLEAR (CLEAR); COLOR URINE YELLOW (YELLOW); KETONES URINE 3+ (NEGATIVE); LEUKOCYTE ESTERASE URINE NEGATIVE (NEGATIVE); NITRITE URINE NEGATIVE (NEGATIVE); OCCULT BLOOD URINE TRACE (NEGATIVE); PROTEIN URINE NEGATIVE (NEGATIVE); SPECIFIC GRAVITY URINE 1.022 (1.005-1.030); UROBILINOGEN URINE 0.2 E.U./dL (0.2-1.0)
[2020-11-17] MEDS ORDERED: INSULIN REGULAR (HUMULIN R) 300UNITS/3ML VIAL IV ONE (17:30)
[2020-11-17] MEDS ORDERED: INSULIN REGULAR (HUMULIN R) 300UNITS/3ML VIAL IV NR (22:00)
[2020-11-17] MEDS ORDERED: DEXTROSE 50% WATER 50ML SYRINGE IV PRN ×2 (22:00)
[2020-11-17] MEDS ORDERED: INSULIN REGULAR (DRIP) 100 UNITS in SODIUM CHLORIDE 0.9% 100 ML IV SCH (22:00)
[2020-11-17] MEDS: BLOOD SUGAR DIAGNOSTIC STRIP TEST SCH ×2 (22:04→23:00)
[2020-11-18] MEDS: SODIUM CHLORIDE 0.9% 1,000 ML IV SCH ×4 (00:33→22:59)
[2020-11-18] MEDS: PANTOPRAZOLE SODIUM 40 MG/VIAL IV SCH ×2 (00:34→11:50)
[2020-11-18] MEDS: ENOXAPARIN 40MG/0.4ML SYR SUBCUT SCH (00:35)
[2020-11-18] MEDS ORDERED: CEFEPIME 1,000 MG in DEXTROSE 5% WATER 50 ML IV SCH (01:00)
[2020-11-18] MEDS: BLOOD SUGAR DIAGNOSTIC STRIP TEST SCH ×11 (01:00→21:00)
[2020-11-18 04:16] LABS: CHLORIDE 110 mEq/L (98-107)
[2020-11-18] MEDS ORDERED: SODIUM CHLORIDE 0.9% 500 ML IV NR (06:00)
[2020-11-18 10:30] LABS: HEMATOCRIT. 34.9 % (36.0-48.0); HEMOGLOBIN. 11.6 g/dL (12.0-16.0); MEAN CORPUSCULAR HEMOGLOBIN 29.2 pg (28.0-32.0); MEAN CORPUSCULAR VOLUME 87.7 fL (81.0-99.0); MEAN PLATELET VOLUME 8.7 fl (7.4-10.4); PLATELET 167 x1000/uL (130-400); RED BLOOD CELL COUNT 3.98 mill/uL (4.2-5.4); RED CELL DISTRIBUTION WIDTH 13.5 % (11.6-14.6)
[2020-11-18 10:43] LABS: CHLORIDE 116 mEq/L (98-107)
[2020-11-18] MEDS ORDERED: DEXTROSE 50% WATER 50ML SYRINGE IV PRN (11:15)
[2020-11-18] MEDS: LEVOTHYROXINE SODIUM 50MCG TABLET PO SCH (11:30)
[2020-11-18 11:54] LABS: PLATELET ESTIMATE NORMAL
[2020-11-18 12:29] LABS: BG BASE EXCESS -4.4 mmol/L (-2.0-2.0); BG CARBOXYHEMOGLOBIN 0.2 % (0.5-1.5); BG DEOXYHEMOGLOBIN 3.1 % (0.0-5.0); BG FRACTION INSPIRED OXYGEN 21; BG METHEMOGLOBIN 0.2 % (0.0-1.5); BG OXYGEN SATURATION 96.9 % (92.0-98.5); BG OXYHEMOGLOBIN 96.5 % (94.0-97.0); BG PCO2 29.7 mmHg (35.0-45.0); BG PH 7.423 (7.350-7.450); BG PO2 94.8 mmHg (75.0-100.0); BG SAMPLE SITE RIGHT RADIAL; BG TOTAL HEMOGLOBIN 11.4 g/dL (12.0-18.0); BG VENT MODE ROOM AIR
[2020-11-18] MEDS ORDERED: INSULIN GLARGINE UD 100 UNITS/ML SYR SUBCUT NR (12:30)
[2020-11-18] MEDS: INSULIN LISPRO 100 UNITS/ML SUBCUT SCH ×2 (15:06→23:00)
[2020-11-18] MEDS ORDERED: INSULIN GLARGINE UD 100 UNITS/ML SYR SUBCUT SCH (22:00)
[2020-11-18 22:10] VITALS: BP 108/59
[2020-11-19] VITALS: BP 105/52
[2020-11-19] MEDS: ENOXAPARIN 40MG/0.4ML SYR SUBCUT SCH (00:16)
[2020-11-19] MEDS: INSULIN GLARGINE UD 100 UNITS/ML SYR SUBCUT SCH ×2 (00:17→10:09)
[2020-11-19 04:00] VITALS: BP 106/57
[2020-11-19 06:34] LABS: BASOPHILS % 0.1 % (0.0-2.0); EOSINOPHILS % 0.1 % (0.0-5.0); HEMATOCRIT. 33.8 % (36.0-48.0); HEMOGLOBIN. 11.1 g/dL (12.0-16.0); MEAN CORPUSCULAR HEMOGLOBIN 28.5 pg (28.0-32.0); MEAN CORPUSCULAR VOLUME 86.6 fL (81.0-99.0); MEAN PLATELET VOLUME 9.4 fl (7.4-10.4); MONOCYTES % 6.6 % (2.0-8.0); NEUTROPHILS % 79.2 % (40.0-76.0); PLATELET 135 x1000/uL (130-400); RED BLOOD CELL COUNT 3.91 mill/uL (4.2-5.4); RED CELL DISTRIBUTION WIDTH 13.6 % (11.6-14.6)
[2020-11-19 06:46] LABS: CHLORIDE 116 mEq/L (98-107)
[2020-11-19] MEDS: SODIUM CHLORIDE 0.9% 1,000 ML IV SCH (07:45)
[2020-11-19] MEDS: INSULIN LISPRO 100 UNITS/ML SUBCUT SCH ×2 (07:50→13:15)
[2020-11-19] MEDS: BLOOD SUGAR DIAGNOSTIC STRIP TEST SCH ×2 (07:57→12:55)
[2020-11-19 08:00] VITALS: BP 100/54
[2020-11-19] MEDS ORDERED: CEFEPIME 1,000 MG in DEXTROSE 5% WATER 50 ML IV SCH (08:00)
[2020-11-19] MEDS: LEVOTHYROXINE SODIUM 50MCG TABLET PO SCH (09:55)
[2020-11-19] MEDS: PANTOPRAZOLE SODIUM 40 MG/VIAL IV SCH (09:55)
[2020-11-19 12:00] VITALS: BP 111/67
[2020-11-19] MEDS ORDERED: INSU100I28 SQ (12:09)
[2020-11-19 16:17] VITALS: BP 117/66
[2020-11-19 16:19] VITALS: BP 117/66
[2020-11-20] MEDS ORDERED: FAMOTIDINE 20MG TABLET PO SCH (07:20)
[2020-11-20] MEDS ORDERED: INSU100I28 SQ (09:55)
== END 2020-11-19 18:02 | disposition home or self-care (01) | DRG 637 ==
LOC: ER 15:12 → MICUSO 17:38 → 6EST 11-18 20:29
PROVIDERS: ADMIT Internal Medicine Pulmonary Disease; ATTEND Internal Medicine Pulmonary Disease
DX: E11.10 Type 2 diabetes mellitus with ketoacidosis without coma (principal); N17.0 Acute kidney failure with tubular necrosis; E44.1 Mild protein-calorie malnutrition; E87.1 Hypo-osmolality and hyponatremia; D64.9 Anemia, unspecified; E03.9 Hypothyroidism, unspecified; E87.5 Hyperkalemia; Z91.19 Patient's noncompliance with other medical treatment and regimen; E87.8 Other disorders of electrolyte and fluid balance, not elsewhere classified; Z91.14 Patient's other noncompliance with medication regimen; Z79.899 Other long term (current) drug therapy; Z79.82 Long term (current) use of aspirin; Z68.24 Body mass index [BMI] 24.0-24.9, adult; Z88.2 Allergy status to sulfonamides
CPT/HCPCS: 36415; 36600; 71045; 80048; 80053; 81003; 82010; 82375; 82805; 82962; 83036; 84145; 84484; 85025; 93005; 96365; 97162; 99285; C9113; J0692; J1650; J1815; J7030; J7050; J7060

== ENCOUNTER 2021-02-14 09:59 | Inpatient (IN) | payer BC, MEDICARE ==
[~2021-02-14] VITALS: Ht 172.7 cm; Wt 62.1 kg
[2021-02-14] MEDS ORDERED: INSULIN GLARGINE UD 100 UNITS/ML SYR SUBCUT SCH (10:00)
[2021-02-14 10:38] LABS: BASOPHILS % 0.3 % (0.0-2.0); EOSINOPHILS % 0.2 % (0.0-5.0); HEMATOCRIT. 39.2 % (36.0-48.0); HEMOGLOBIN. 13.2 g/dL (12.0-16.0); LYMPHOCYTES % 19.3 % (20.0-50.0); MEAN CORPUSCULAR HEMOGLOBIN 28.2 pg (28.0-32.0); MEAN CORPUSCULAR VOLUME 83.9 fL (81.0-99.0); MEAN PLATELET VOLUME 8.9 fl (7.4-10.4); MONOCYTES % 8.2 % (2.0-8.0); PLATELET 106 x1000/uL (130-400); RED BLOOD CELL COUNT 4.67 mill/uL (4.2-5.4); RED CELL DISTRIBUTION WIDTH 14.6 % (11.6-14.6)
[2021-02-14 10:47] LABS: CHLORIDE 102 mEq/L (98-107)
[2021-02-14 10:50] LABS: ETHANOL BLOOD < 10 mg/dL
[2021-02-14] MEDS ORDERED: ACETAMINOPHEN 325MG TABLET PO PRN (12:30)
[2021-02-14] MEDS ORDERED: ONDANSETRON HCL 4MG/2ML INJ IV PRN (12:30)
[2021-02-14] MEDS ORDERED: DEXTROSE 50% WATER 50ML SYRINGE IV PRN (12:30)
[2021-02-14] MEDS: BLOOD SUGAR DIAGNOSTIC STRIP TEST SCH ×3 (13:21→21:43)
[2021-02-14] MEDS: INSULIN LISPRO 100 UNITS/ML SUBCUT SCH ×3 (13:31→21:00)
[2021-02-14] MEDS ORDERED: DEXT 5%/LACTATED RINGERS 1,000 ML IV SCH (13:45)
[2021-02-14] MEDS ORDERED: NICARDIPINE 100 MG in SODIUM CHLORIDE 0.9% 60 ML IV PRN (13:45)
[2021-02-14] MEDS: LEVETIRACETAM 500MG PREMIX 100 ML IV SCH ×2 (14:21→21:00)
[2021-02-14] MEDS: INSULIN GLARGINE UD 100 UNITS/ML SYR SUBCUT NR ×2 (18:57→19:41)
[2021-02-15 00:20] VITALS: BP 135/64
[2021-02-15 04:00] VITALS: BP 121/63
[2021-02-15 05:44] LABS: BASOPHILS % 0.2 % (0.0-2.0); HEMATOCRIT. 38.3 % (36.0-48.0); HEMOGLOBIN. 12.9 g/dL (12.0-16.0); LYMPHOCYTES % 17.8 % (20.0-50.0); MEAN CORPUSCULAR HEMOGLOBIN 28.3 pg (28.0-32.0); MEAN CORPUSCULAR VOLUME 84.2 fL (81.0-99.0); MEAN PLATELET VOLUME 9.1 fl (7.4-10.4); MONOCYTES % 6.8 % (2.0-8.0); NEUTROPHILS % 75.2 % (40.0-76.0); PLATELET 97 x1000/uL (130-400); RED BLOOD CELL COUNT 4.55 mill/uL (4.2-5.4); RED CELL DISTRIBUTION WIDTH 14.3 % (11.6-14.6)
[2021-02-15 05:57] LABS: CHLORIDE 103 mEq/L (98-107)
[2021-02-15] MEDS: BLOOD SUGAR DIAGNOSTIC STRIP TEST SCH ×2 (07:03→12:56)
[2021-02-15] MEDS ORDERED: LEVOTHYROXINE SODIUM 50MCG TABLET PO SCH (07:20)
[2021-02-15 08:10] VITALS: BP 113/60
[2021-02-15] MEDS ORDERED: LEVETIRACETAM 500MG PREMIX 100 ML IV SCH (09:00)
[2021-02-15] MEDS: INSULIN LISPRO 100 UNITS/ML SUBCUT SCH ×2 (09:13→12:54)
[2021-02-15] MEDS ORDERED: INSULIN GLARGINE UD 100 UNITS/ML SYR SUBCUT SCH (10:00)
[2021-02-15 11:04] VITALS: BP 117/65
[2021-02-15 16:20] VITALS: BP 122/62
== END 2021-02-15 17:34 | disposition home health service (06) | DRG 86 ==
LOC: ER 09:59 → 6WST 12:31 → CANRESERV 21:14 → ENRESERV 21:14
PROVIDERS: ADMIT Internal Medicine Pulmonary Disease; ATTEND Internal Medicine Pulmonary Disease
DX: S06.6X0A Traumatic subarachnoid hemorrhage without loss of consciousness, initial encounter (principal); E87.1 Hypo-osmolality and hyponatremia; E11.9 Type 2 diabetes mellitus without complications; E03.9 Hypothyroidism, unspecified; W18.39XA Other fall on same level, initial encounter; Y93.01 Activity, walking, marching and hiking; Y92.89 Other specified places as the place of occurrence of the external cause; Y99.8 Other external cause status; Z88.2 Allergy status to sulfonamides; Z79.899 Other long term (current) drug therapy; Z79.4 Long term (current) use of insulin
CPT/HCPCS: 36415; 70551; 80048; 80320; 82962; 84484; 85025; 92610; 93005; 97162; 99291; J1815; J1953; G0480

== ENCOUNTER 2021-02-16 10:56 | Inpatient (IN) | payer BC, MEDICARE ==
[~2021-02-16] VITALS: Ht 170.2 cm; Wt 65.3 kg
[2021-02-16] MEDS ORDERED: SODIUM CHLORIDE 0.9% 1,000 ML IV ONE (11:45)
[2021-02-16 11:58] LABS: BASOPHILS % 0.2 % (0.0-2.0); EOSINOPHILS % 0.1 % (0.0-5.0); HEMATOCRIT. 41.1 % (36.0-48.0); HEMOGLOBIN. 13.6 g/dL (12.0-16.0); LYMPHOCYTES % 18.6 % (20.0-50.0); MEAN CORPUSCULAR HEMOGLOBIN 28.3 pg (28.0-32.0); MEAN CORPUSCULAR VOLUME 85.5 fL (81.0-99.0); MEAN PLATELET VOLUME 8.6 fl (7.4-10.4); MONOCYTES % 5.9 % (2.0-8.0); NEUTROPHILS % 75.2 % (40.0-76.0); PLATELET 80 x1000/uL (130-400); RED CELL DISTRIBUTION WIDTH 14.6 % (11.6-14.6)
[2021-02-16 12:03] LABS: CHLORIDE 104 mEq/L (98-107)
[2021-02-16] MEDS ORDERED: ASPIRIN 325MG EC TABLET PO ONE (13:00)
[2021-02-16 20:50] VITALS: BP 129/59
[2021-02-16] MEDS: INSULIN GLARGINE UD 100 UNITS/ML SYR SUBCUT SCH (23:00)
[2021-02-17] VITALS (7 sets, daily range): BP systolic 116–137; BP diastolic 61–95
[2021-02-17 00:46] LABS: CREATINE KINASE 45 IU/L (26-192); CREATINE KINASE MB FRACTION < 1.0 ng/mL (0.5-3.6)
[2021-02-17 03:55] LABS: CLARITY URINE CLEAR (CLEAR); COLOR URINE YELLOW (YELLOW); KETONES URINE 2+ (NEGATIVE); LEUKOCYTE ESTERASE URINE NEGATIVE (NEGATIVE); NITRITE URINE NEGATIVE (NEGATIVE); OCCULT BLOOD URINE NEGATIVE (NEGATIVE); PROTEIN URINE NEGATIVE (NEGATIVE); SPECIFIC GRAVITY URINE 1.028 (1.005-1.030); UROBILINOGEN URINE 0.2 E.U./dL (0.2-1.0)
[2021-02-17 06:14] LABS: T4 FREE 0.74 ng/dL (0.76-1.46)
[2021-02-17] MEDS: BLOOD SUGAR DIAGNOSTIC STRIP TEST SCH ×4 (06:26→21:35)
[2021-02-17] MEDS: INSULIN LISPRO 100 UNITS/ML SUBCUT SCH ×4 (06:37→21:45)
[2021-02-17 06:50] LABS: VITAMIN B12 SERUM 1493 pg/mL (211-911)
[2021-02-17] MEDS: INSULIN GLARGINE UD 100 UNITS/ML SYR SUBCUT SCH ×2 (10:00→21:46)
[2021-02-17 10:44] LABS: CREATINE KINASE 44 IU/L (26-192)
[2021-02-17 10:45] LABS: CREATINE KINASE MB FRACTION < 1.0 ng/mL (0.5-3.6)
[2021-02-17] MEDS ORDERED: LEVOTHYROXINE SODIUM 25MCG TABLET PO SCH (15:15)
[2021-02-17] MEDS ORDERED: LEVOTHYROXINE SODIUM 100MCG TABLET PO SCH (15:45)
[2021-02-17] MEDS: FLUDROCORTISONE ACETATE 0.1MG TABLET PO SCH (16:42)
[2021-02-17] MEDS ORDERED: INSULIN LISPRO 100 UNITS/ML SUBCUT SCH (17:20)
[2021-02-17] MEDS: ATORVASTATIN CALCIUM 20MG TABLET PO SCH ×2 (21:00→21:41)
[2021-02-17 21:57] LABS: CREATINE KINASE 55 IU/L (26-192)
[2021-02-17 21:58] LABS: CREATINE KINASE MB FRACTION < 1.0 ng/mL (0.5-3.6)
[2021-02-18] VITALS (10 sets, daily range): BP systolic 91–146; BP diastolic 47–71
[2021-02-18] MEDS: ACETAMINOPHEN 325MG TABLET PO PRN ×3 (04:16→22:44)
[2021-02-18] MEDS: LEVOTHYROXINE SODIUM 100MCG TABLET PO SCH (06:26)
[2021-02-18] MEDS: BLOOD SUGAR DIAGNOSTIC STRIP TEST SCH ×4 (06:28→21:19)
[2021-02-18] MEDS: INSULIN LISPRO 100 UNITS/ML SUBCUT SCH ×4 (06:28→21:29)
[2021-02-18] MEDS: FLUDROCORTISONE ACETATE 0.1MG TABLET PO SCH (09:03)
[2021-02-18 09:44] LABS: BASOPHILS % 0.1 % (0.0-2.0); HEMATOCRIT. 38.3 % (36.0-48.0); HEMOGLOBIN. 13.1 g/dL (12.0-16.0); MEAN CORPUSCULAR HEMOGLOBIN 28.5 pg (28.0-32.0); MEAN CORPUSCULAR VOLUME 83.6 fL (81.0-99.0); MEAN PLATELET VOLUME 8.9 fl (7.4-10.4); MONOCYTES % 3.8 % (2.0-8.0); NEUTROPHILS % 77.1 % (40.0-76.0); PLATELET 113 x1000/uL (130-400); RED BLOOD CELL COUNT 4.58 mill/uL (4.2-5.4); RED CELL DISTRIBUTION WIDTH 14.4 % (11.6-14.6)
[2021-02-18 09:55] LABS: CHLORIDE 101 mEq/L (98-107)
[2021-02-18] MEDS ORDERED: POTASSIUM CHLORIDE 20MEQ TABLET SR PO NR (11:00)
[2021-02-18] MEDS ORDERED: POTASSIUM CHLORIDE 20MEQ/PACKET PO NR (11:00)
[2021-02-18] MEDS ORDERED: FLOR MT (16:09)
[2021-02-18] MEDS: ATORVASTATIN CALCIUM 20MG TABLET PO SCH ×2 (21:00→21:28)
[2021-02-18] MEDS: MIDODRINE HCL 2.5MG TABLET PO SCH (21:26)
[2021-02-18] MEDS: INSULIN GLARGINE UD 100 UNITS/ML SYR SUBCUT SCH (21:30)
[2021-02-19] VITALS: BP 114/65
[2021-02-19] MEDS: LEVOTHYROXINE SODIUM 100MCG TABLET PO SCH (06:51)
[2021-02-19] MEDS: BLOOD SUGAR DIAGNOSTIC STRIP TEST SCH ×4 (06:51→21:00)
[2021-02-19 07:33] LABS: CHLORIDE 101 mEq/L (98-107)
[2021-02-19 08:00] VITALS: BP 117/66
[2021-02-19 08:04] LABS: BASOPHILS % 0.3 % (0.0-2.0); EOSINOPHILS % 0.1 % (0.0-5.0); HEMATOCRIT. 40.6 % (36.0-48.0); HEMOGLOBIN. 13.5 g/dL (12.0-16.0); LYMPHOCYTES % 18.8 % (20.0-50.0); MEAN CORPUSCULAR HEMOGLOBIN 28.7 pg (28.0-32.0); MEAN CORPUSCULAR VOLUME 86.6 fL (81.0-99.0); MONOCYTES % 6.2 % (2.0-8.0); NEUTROPHILS % 74.6 % (40.0-76.0); PLATELET 113 x1000/uL (130-400); RED BLOOD CELL COUNT 4.69 mill/uL (4.2-5.4); RED CELL DISTRIBUTION WIDTH 14.1 % (11.6-14.6)
[2021-02-19] MEDS: FLUDROCORTISONE ACETATE 0.1MG TABLET PO SCH (08:35)
[2021-02-19] MEDS: MIDODRINE HCL 2.5MG TABLET PO SCH ×3 (08:36→17:00)
[2021-02-19] MEDS: INSULIN LISPRO 100 UNITS/ML SUBCUT SCH ×4 (08:38→22:58)
[2021-02-19] MEDS: INSULIN GLARGINE UD 100 UNITS/ML SYR SUBCUT SCH ×2 (10:00→23:03)
[2021-02-19 12:00] VITALS: BP 114/66
[2021-02-19 16:00] VITALS: BP 123/67
[2021-02-19 20:00] VITALS: BP 110/54
[2021-02-19] MEDS: ATORVASTATIN CALCIUM 20MG TABLET PO SCH (21:00)
[2021-02-20] VITALS: BP 148/63
[2021-02-20 04:00] VITALS: BP 118/60
[2021-02-20] MEDS: LEVOTHYROXINE SODIUM 100MCG TABLET PO SCH (07:57)
[2021-02-20] MEDS: INSULIN LISPRO 100 UNITS/ML SUBCUT SCH ×4 (07:58→21:00)
[2021-02-20] MEDS: BLOOD SUGAR DIAGNOSTIC STRIP TEST SCH ×4 (07:58→21:00)
[2021-02-20 08:00] VITALS: BP 115/66
[2021-02-20] MEDS: FLUDROCORTISONE ACETATE 0.1MG TABLET PO SCH (09:36)
[2021-02-20] MEDS: MIDODRINE HCL 2.5MG TABLET PO SCH ×3 (09:37→17:00)
[2021-02-20 12:00] VITALS: BP 119/70
[2021-02-20 16:00] VITALS: BP 134/72
[2021-02-20 20:00] VITALS: BP 121/69
[2021-02-20] MEDS: ATORVASTATIN CALCIUM 20MG TABLET PO SCH (22:19)
[2021-02-20] MEDS: INSULIN GLARGINE UD 100 UNITS/ML SYR SUBCUT SCH (22:21)
[2021-02-21 00:09] VITALS: BP 121/69
[2021-02-21 04:00] VITALS: BP 98/48
[2021-02-21] MEDS: BLOOD SUGAR DIAGNOSTIC STRIP TEST SCH ×4 (07:40→21:00)
[2021-02-21 08:00] VITALS: BP 135/69
[2021-02-21] MEDS: INSULIN LISPRO 100 UNITS/ML SUBCUT SCH ×4 (08:10→21:00)
[2021-02-21] MEDS: FLUDROCORTISONE ACETATE 0.1MG TABLET PO SCH (09:00)
[2021-02-21] MEDS: MIDODRINE HCL 2.5MG TABLET PO SCH ×3 (09:00→17:00)
[2021-02-21] MEDS: ASPIRIN 81MG TABLET PO SCH (09:15)
[2021-02-21] MEDS: LEVOTHYROXINE SODIUM 100MCG TABLET PO SCH (09:52)
[2021-02-21] MEDS: INSULIN GLARGINE UD 100 UNITS/ML SYR SUBCUT SCH ×2 (10:05→22:30)
[2021-02-21 12:00] VITALS: BP 133/76
[2021-02-21] MEDS: BENZONATATE 100MG CAPSULE PO PRN (14:10)
[2021-02-21 16:00] VITALS: BP 128/79
[2021-02-21 20:00] VITALS: BP 101/62
[2021-02-21] MEDS: ATORVASTATIN CALCIUM 20MG TABLET PO SCH (21:00)
[2021-02-21] MEDS: ACETAMINOPHEN 325MG TABLET PO PRN (22:18)
[2021-02-22] VITALS: BP 104/61
[2021-02-22 04:00] VITALS: BP_SYST 104; BP_SYST 141; BP_DIAS 60; BP_DIAS 61
[2021-02-22] MEDS: BENZONATATE 100MG CAPSULE PO PRN ×2 (06:05→17:58)
[2021-02-22] MEDS: DEXTROSE 50% WATER 50ML SYRINGE IV PRN ×2 (06:13→17:58)
[2021-02-22 07:44] LABS: BASOPHILS % 0.2 % (0.0-2.0); EOSINOPHILS % 0.5 % (0.0-5.0); HEMATOCRIT. 39.5 % (36.0-48.0); HEMOGLOBIN. 13.4 g/dL (12.0-16.0); LYMPHOCYTES % 14.7 % (20.0-50.0); MEAN CORPUSCULAR HEMOGLOBIN 28.4 pg (28.0-32.0); MEAN CORPUSCULAR VOLUME 84.2 fL (81.0-99.0); MEAN PLATELET VOLUME 7.3 fl (7.4-10.4); MONOCYTES % 8.3 % (2.0-8.0); NEUTROPHILS % 76.3 % (40.0-76.0); PLATELET 223 x1000/uL (130-400)
[2021-02-22 08:00] VITALS: BP 132/77
[2021-02-22 08:03] LABS: CHLORIDE 103 mEq/L (98-107)
[2021-02-22] MEDS: INSULIN LISPRO 100 UNITS/ML SUBCUT SCH ×4 (08:10→21:00)
[2021-02-22] MEDS: BLOOD SUGAR DIAGNOSTIC STRIP TEST SCH ×4 (08:16→21:13)
[2021-02-22] MEDS: LEVOTHYROXINE SODIUM 100MCG TABLET PO SCH (08:20)
[2021-02-22] MEDS: ASPIRIN 81MG TABLET PO SCH (08:20)
[2021-02-22] MEDS: MIDODRINE HCL 2.5MG TABLET PO SCH ×3 (08:20→17:58)
[2021-02-22] MEDS: FLUDROCORTISONE ACETATE 0.1MG TABLET PO SCH (08:20)
[2021-02-22 12:00] VITALS: BP 127/74
[2021-02-22 16:00] VITALS: BP 142/67
[2021-02-22] MEDS ORDERED: POTASSIUM CHLORIDE 20MEQ TABLET SR PO NR (16:45)
[2021-02-22 20:00] VITALS: BP 107/62
[2021-02-22] MEDS: ATORVASTATIN CALCIUM 20MG TABLET PO SCH (21:13)
[2021-02-23] VITALS: BP 109/62
[2021-02-23 04:00] VITALS: BP 111/62
[2021-02-23] MEDS: BLOOD SUGAR DIAGNOSTIC STRIP TEST SCH ×4 (06:33→21:01)
[2021-02-23 08:00] VITALS: BP 125/61
[2021-02-23] MEDS: INSULIN LISPRO 100 UNITS/ML SUBCUT SCH ×4 (08:10→21:00)
[2021-02-23] MEDS: BENZONATATE 100MG CAPSULE PO PRN ×2 (08:28→17:35)
[2021-02-23] MEDS: ASPIRIN 81MG TABLET PO SCH (08:28)
[2021-02-23] MEDS: FLUDROCORTISONE ACETATE 0.1MG TABLET PO SCH (08:29)
[2021-02-23] MEDS: MIDODRINE HCL 2.5MG TABLET PO SCH ×3 (08:29→17:35)
[2021-02-23] MEDS: LEVOTHYROXINE SODIUM 100MCG TABLET PO SCH (08:31)
[2021-02-23 12:00] VITALS: BP 116/74
[2021-02-23 16:00] VITALS: BP 130/62
[2021-02-23 20:00] VITALS: BP 131/69
[2021-02-23] MEDS: ATORVASTATIN CALCIUM 20MG TABLET PO SCH (21:01)
[2021-02-24] VITALS: BP 123/66
[2021-02-24 04:00] VITALS: BP 119/64
[2021-02-24] MEDS: BLOOD SUGAR DIAGNOSTIC STRIP TEST SCH ×4 (06:09→21:38)
[2021-02-24 08:00] VITALS: BP 145/78
[2021-02-24] MEDS: FLUDROCORTISONE ACETATE 0.1MG TABLET PO SCH (08:42)
[2021-02-24] MEDS: LEVOTHYROXINE SODIUM 100MCG TABLET PO SCH (08:42)
[2021-02-24] MEDS: ASPIRIN 81MG TABLET PO SCH (08:42)
[2021-02-24] MEDS: INSULIN LISPRO 100 UNITS/ML SUBCUT SCH ×4 (08:44→21:00)
[2021-02-24] MEDS: MIDODRINE HCL 2.5MG TABLET PO SCH ×3 (08:44→17:56)
[2021-02-24] MEDS: BENZONATATE 100MG CAPSULE PO PRN ×2 (09:50→21:37)
[2021-02-24 12:00] VITALS: BP 110/66
[2021-02-24 16:00] VITALS: BP 121/63
[2021-02-24] MEDS: GUAIFENESIN-DM 200MG-20MG/10ML UDC PO PRN (17:56)
[2021-02-24 20:00] VITALS: BP 112/45
[2021-02-24] MEDS: ATORVASTATIN CALCIUM 20MG TABLET PO SCH (21:37)
[2021-02-25] VITALS: BP 116/56
[2021-02-25 04:00] VITALS: BP 110/50
[2021-02-25] MEDS: LEVOTHYROXINE SODIUM 100MCG TABLET PO SCH (06:33)
[2021-02-25] MEDS: BLOOD SUGAR DIAGNOSTIC STRIP TEST SCH ×4 (07:16→20:41)
[2021-02-25 08:00] VITALS: BP 101/42
[2021-02-25] MEDS: ASPIRIN 81MG TABLET PO SCH (08:56)
[2021-02-25] MEDS: FLUDROCORTISONE ACETATE 0.1MG TABLET PO SCH (08:56)
[2021-02-25] MEDS: INSULIN LISPRO 100 UNITS/ML SUBCUT SCH ×4 (09:01→21:26)
[2021-02-25] MEDS: MIDODRINE HCL 2.5MG TABLET PO SCH ×3 (09:02→18:00)
[2021-02-25 12:00] VITALS: BP 119/62
[2021-02-25 16:00] VITALS: BP 120/51
[2021-02-25] MEDS: GUAIFENESIN-DM 200MG-20MG/10ML UDC PO PRN (17:59)
[2021-02-25 20:00] VITALS: BP 106/63
[2021-02-25] MEDS: ACETAMINOPHEN 325MG TABLET PO PRN (20:41)
[2021-02-25] MEDS: ATORVASTATIN CALCIUM 20MG TABLET PO SCH ×2 (20:41→21:00)
[2021-02-25] MEDS: INSULIN GLARGINE UD 100 UNITS/ML SYR SUBCUT SCH (21:27)
[2021-02-26] VITALS: BP 104/53
[2021-02-26 04:00] VITALS: BP 106/53
[2021-02-26] MEDS: LEVOTHYROXINE SODIUM 100MCG TABLET PO SCH (07:02)
[2021-02-26] MEDS: BLOOD SUGAR DIAGNOSTIC STRIP TEST SCH ×4 (07:09→20:35)
[2021-02-26 08:00] VITALS: BP 110/50
[2021-02-26] MEDS: ASPIRIN 81MG TABLET PO SCH ×2 (08:39→08:50)
[2021-02-26] MEDS: FLUDROCORTISONE ACETATE 0.1MG TABLET PO SCH ×2 (08:39→08:50)
[2021-02-26] MEDS: MIDODRINE HCL 2.5MG TABLET PO SCH ×3 (08:39→17:11)
[2021-02-26] MEDS: INSULIN LISPRO 100 UNITS/ML SUBCUT SCH ×4 (08:44→20:40)
[2021-02-26] MEDS: INSULIN GLARGINE UD 100 UNITS/ML SYR SUBCUT SCH ×2 (10:48→20:41)
[2021-02-26 12:00] VITALS: BP 115/64
[2021-02-26 16:00] VITALS: BP 129/59
[2021-02-26 20:30] VITALS: BP 121/70
[2021-02-26] MEDS: ATORVASTATIN CALCIUM 20MG TABLET PO SCH (20:35)
[2021-02-27 00:17] VITALS: BP 106/56
[2021-02-27 04:00] VITALS: BP 110/61
[2021-02-27] MEDS: BLOOD SUGAR DIAGNOSTIC STRIP TEST SCH ×4 (06:53→19:55)
[2021-02-27 08:00] VITALS: BP 103/52
[2021-02-27] MEDS: INSULIN LISPRO 100 UNITS/ML SUBCUT SCH ×4 (08:10→20:00)
[2021-02-27] MEDS: BENZONATATE 100MG CAPSULE PO PRN (08:41)
[2021-02-27] MEDS: ASPIRIN 81MG TABLET PO SCH ×2 (08:41→08:49)
[2021-02-27] MEDS: LEVOTHYROXINE SODIUM 100MCG TABLET PO SCH (08:42)
[2021-02-27] MEDS: MIDODRINE HCL 2.5MG TABLET PO SCH ×4 (08:42→17:00)
[2021-02-27] MEDS: FLUDROCORTISONE ACETATE 0.1MG TABLET PO SCH ×2 (08:42→08:49)
[2021-02-27] MEDS: GUAIFENESIN-DM 200MG-20MG/10ML UDC PO PRN ×3 (09:45→17:47)
[2021-02-27] MEDS: INSULIN GLARGINE UD 100 UNITS/ML SYR SUBCUT SCH ×2 (09:51→20:04)
[2021-02-27 12:00] VITALS: BP 121/46
[2021-02-27 16:00] VITALS: BP 113/56
[2021-02-27] MEDS: ATORVASTATIN CALCIUM 20MG TABLET PO SCH (19:46)
[2021-02-27 20:00] VITALS: BP 125/67
[2021-02-28] VITALS: BP 118/70
[2021-02-28 04:00] VITALS: BP 109/51
[2021-02-28] MEDS: BLOOD SUGAR DIAGNOSTIC STRIP TEST SCH ×4 (06:17→20:46)
[2021-02-28] MEDS: GUAIFENESIN-DM 200MG-20MG/10ML UDC PO PRN ×2 (07:58→20:46)
[2021-02-28] MEDS: LEVOTHYROXINE SODIUM 100MCG TABLET PO SCH (07:58)
[2021-02-28 08:00] VITALS: BP 101/55
[2021-02-28] MEDS: INSULIN LISPRO 100 UNITS/ML SUBCUT SCH ×4 (08:14→20:55)
[2021-02-28] MEDS: MIDODRINE HCL 2.5MG TABLET PO SCH ×3 (09:00→17:00)
[2021-02-28] MEDS: FLUDROCORTISONE ACETATE 0.1MG TABLET PO SCH (09:00)
[2021-02-28] MEDS: ASPIRIN 81MG TABLET PO SCH (09:00)
[2021-02-28] MEDS: INSULIN GLARGINE UD 100 UNITS/ML SYR SUBCUT SCH ×2 (10:00→22:58)
[2021-02-28 12:00] VITALS: BP 128/64
[2021-02-28 16:00] VITALS: BP 116/57
[2021-02-28 20:00] VITALS: BP 105/61
[2021-02-28] MEDS: ATORVASTATIN CALCIUM 20MG TABLET PO SCH (20:46)
[2021-03-01] VITALS: BP 103/67
[2021-03-01 04:00] VITALS: BP 103/58
[2021-03-01] MEDS: BLOOD SUGAR DIAGNOSTIC STRIP TEST SCH ×2 (07:40→12:17)
[2021-03-01] MEDS: LEVOTHYROXINE SODIUM 100MCG TABLET PO SCH (08:36)
[2021-03-01] MEDS: GUAIFENESIN-DM 200MG-20MG/10ML UDC PO PRN (08:36)
[2021-03-01] MEDS: INSULIN LISPRO 100 UNITS/ML SUBCUT SCH ×2 (08:37→12:24)
[2021-03-01] MEDS: ASPIRIN 81MG TABLET PO SCH (09:00)
[2021-03-01] MEDS: MIDODRINE HCL 2.5MG TABLET PO SCH (09:00)
[2021-03-01] MEDS: FLUDROCORTISONE ACETATE 0.1MG TABLET PO SCH (09:00)
[2021-03-01] MEDS: INSULIN GLARGINE UD 100 UNITS/ML SYR SUBCUT SCH (10:00)
[2021-03-01 12:00] VITALS: BP 123/61
[2021-03-01 12:52] VITALS: BP 123/61
[2021-03-01 16:00] VITALS: BP 126/65
== END 2021-03-01 16:25 | disposition home health service (06) | DRG 177 ==
LOC: ER 10:56 → MICUSO 13:12 → 6WST 19:26 → 7WST 02-19 20:15
PROVIDERS: ADMIT Internal Medicine Pulmonary Disease; ATTEND Internal Medicine Pulmonary Disease
PROC: 4A10X4Z Monitoring of Central Nervous Electrical Activity, External Approach (ICD-10-PCS; principal; 2021-02-17)
DX: U07.1 COVID-19 (principal); E43 Unspecified severe protein-calorie malnutrition; G90.8 Other disorders of autonomic nervous system; E03.9 Hypothyroidism, unspecified; E11.40 Type 2 diabetes mellitus with diabetic neuropathy, unspecified; I95.1 Orthostatic hypotension; E11.649 Type 2 diabetes mellitus with hypoglycemia without coma; Z83.3 Family history of diabetes mellitus; I25.2 Old myocardial infarction; Z91.19 Patient's noncompliance with other medical treatment and regimen; Z88.2 Allergy status to sulfonamides; Z79.4 Long term (current) use of insulin; Z79.82 Long term (current) use of aspirin; Z79.899 Other long term (current) drug therapy; Z68.22 Body mass index [BMI] 22.0-22.9, adult; D72.819 Decreased white blood cell count, unspecified
CPT/HCPCS: 36415; 71045; 80048; 80053; 81003; 82550; 82553; 82607; 82962; 83735; 83880; 84439; 84443; 84484; 85025; 87426; 93005; 93306; 93880; 95816; 97162; 99285; C1893; J1815; J7030; U0003; U0005

== ENCOUNTER 2021-04-22 19:17 | Emergency (ER) | payer BC, MEDICARE ==
[~2021-04-22] VITALS: Ht 160 cm; Wt 66.0 kg
[~2021-04-22 19:17] MED LIST changes: +FLOR MT; -INSLIS SUBCUT
[2021-04-22 22:00] LABS: BASOPHILS % 0.5 % (0.0-2.0); EOSINOPHILS % 0.4 % (0.0-5.0); HEMATOCRIT. 37.3 % (36.0-48.0); HEMOGLOBIN. 12.5 g/dL (12.0-16.0); LYMPHOCYTES % 12.1 % (20.0-50.0); MEAN CORPUSCULAR HEMOGLOBIN 29.5 pg (28.0-32.0); MEAN PLATELET VOLUME 7.8 fl (7.4-10.4); MONOCYTES % 7.9 % (2.0-8.0); NEUTROPHILS % 79.1 % (40.0-76.0); PLATELET 215 x1000/uL (130-400); RED BLOOD CELL COUNT 4.24 mill/uL (4.2-5.4); RED CELL DISTRIBUTION WIDTH 16.6 % (11.6-14.6)
[2021-04-22 22:06] LABS: CHLORIDE 105 mEq/L (98-107)
[2021-04-22 22:13] LABS: BETA HYDROXYBUTYRATE 3.5 mMol/L (0.0-0.3)
[2021-04-23 01:26] LABS: CLARITY URINE CLEAR (CLEAR); COLOR URINE YELLOW (YELLOW); KETONES URINE 3+ (NEGATIVE); LEUKOCYTE ESTERASE URINE TRACE (NEGATIVE); NITRITE URINE NEGATIVE (NEGATIVE); OCCULT BLOOD URINE NEGATIVE (NEGATIVE); PH URINE 5.5 (4.5-8.0); PROTEIN URINE 1+ (NEGATIVE)
[2021-04-23] MEDS ORDERED: SODIUM CHLORIDE 0.9% 1,000 ML IV ONE (02:45)
[2021-04-23] MEDS ORDERED: INSULIN REGULAR (HUMULIN R) 300UNITS/3ML VIAL SUBCUT ONE (02:45)
[2021-04-23] MEDS ORDERED: CEFTRIAXONE 2 G PREMIX 50 ML IV ONE (02:45)
[2021-04-23 03:30] VITALS: BP 133/78
[2021-04-23] MEDS ORDERED: CEPH500C2 MT (03:35)
== END 2021-04-23 06:26 | disposition home or self-care (01) ==
LOC: ER 19:17
DX: N39.0 Urinary tract infection, site not specified (principal); E11.65 Type 2 diabetes mellitus with hyperglycemia; Z79.4 Long term (current) use of insulin; Z88.2 Allergy status to sulfonamides
CPT/HCPCS: 36415; 71045; 80053; 81003; 82010; 82962; 84484; 85025; 93005; 96365; 96372; 99285; J0696; J1815; J7030

== ENCOUNTER 2021-06-06 10:36 | Emergency (ER) | payer BC, MEDICARE ==
[~2021-06-06] VITALS: Ht 167.6 cm; Wt 63.0 kg
[~2021-06-06 10:36] MED LIST changes: +INSLIS SUBCUT; -INSU100I28 SQ; -INSU100I7 SQ; +LEVO500T89 MT
[2021-06-06 10:42] VITALS: BP 114/43
[2021-06-06] MEDS ORDERED: SODIUM CHLORIDE 0.9% 1,000 ML IV ONE (11:00)
[2021-06-06] MEDS ORDERED: ACETAMINOPHEN 325MG TABLET PO STA (11:22)
[2021-06-06 11:48] LABS: BASOPHILS % 0.3 % (0.0-2.0); EOSINOPHILS % 0.8 % (0.0-5.0); HEMATOCRIT. 32.8 % (36.0-48.0); HEMOGLOBIN. 10.6 g/dL (12.0-16.0); LYMPHOCYTES % 9.6 % (20.0-50.0); MEAN CORPUSCULAR HEMOGLOBIN 28.9 pg (28.0-32.0); MEAN CORPUSCULAR VOLUME 89.5 fL (81.0-99.0); MEAN PLATELET VOLUME 7.1 fl (7.4-10.4); MONOCYTES % 4.2 % (2.0-8.0); NEUTROPHILS % 85.1 % (40.0-76.0); PLATELET 249 x1000/uL (130-400); RED BLOOD CELL COUNT 3.66 mill/uL (4.2-5.4); RED CELL DISTRIBUTION WIDTH 16.1 % (11.6-14.6)
[2021-06-06 11:55] LABS: CHLORIDE 103 mEq/L (98-107)
== END 2021-06-06 13:57 | disposition home or self-care (01) ==
LOC: ER 10:36
DX: E11.65 Type 2 diabetes mellitus with hyperglycemia (principal); Z79.899 Other long term (current) drug therapy; Z88.2 Allergy status to sulfonamides; L89.150 Pressure ulcer of sacral region, unstageable
CPT/HCPCS: 36415; 80053; 82962; 85025; 96360; 96361; 99283; J7030

== ENCOUNTER 2022-08-01 11:35 | Inpatient (IN) | payer BC, MEDICARE ==
[~2022-08-01] VITALS: Ht 162.6 cm; Wt 97.5 kg
[~2022-08-01 11:35] MED LIST changes: +CEPH500C2 MT; -DOCU-150 PO; -FLOR MT; +GABA-529 MT; +INSU100I28 SQ; +LEVO100S5 PO; -LEVO500T89 MT; -LEVO50TA MT; -MOM PO
[2022-08-01] MEDS ORDERED: SODIUM CHLORIDE 0.9% 1,000 ML IV ONE (12:30)
[2022-08-01 13:47] LABS: BG BASE EXCESS 3.5 mmol/L (-2.0-2.0); BG CARBOXYHEMOGLOBIN 2.2 % (0.5-1.5); BG DEOXYHEMOGLOBIN 3.8 % (0.0-5.0); BG FRACTION INSPIRED OXYGEN 21; BG HCO3 ACT 27.8 mmol/L (22.0-26.0); BG METHEMOGLOBIN 0.3 % (0.0-1.5); BG OXYGEN SATURATION 96.1 % (92.0-98.5); BG OXYHEMOGLOBIN 93.7 % (94.0-97.0); BG PCO2 41.2 mmHg (35.0-45.0); BG PH 7.447 (7.350-7.450); BG PO2 88.8 mmHg (75.0-100.0); BG SAMPLE SITE LEFT RADIAL; BG TOTAL HEMOGLOBIN 10.2 g/dL (12.0-18.0); BG VENT MODE ROOM AIR
[2022-08-01 14:15] LABS: BASOPHILS % 0.3 % (0.0-2.0); EOSINOPHILS % 0.8 % (0.0-5.0); HEMATOCRIT. 30.4 % (36.0-48.0); HEMOGLOBIN. 9.7 g/dL (12.0-16.0); LYMPHOCYTES % 12.6 % (20.0-50.0); MEAN PLATELET VOLUME 7.4 fl (7.4-10.4); MONOCYTES % 9.6 % (2.0-8.0); NEUTROPHILS % 76.7 % (40.0-76.0); PLATELET 301 x1000/uL (130-400); RED CELL DISTRIBUTION WIDTH 17.1 % (11.6-14.6)
[2022-08-01 14:17] LABS: CHLORIDE 95 mEq/L (98-107)
[2022-08-01 14:21] LABS: INR 0.9; PROTHROMBIN TIME 10.1 sec (9.6-11.0)
[2022-08-01 14:35] LABS: BETA HYDROXYBUTYRATE 0.1 mMol/L (0.0-0.3)
[2022-08-02] MEDS ORDERED: DEXTROSE 50% WATER 50ML SYRINGE IV PRN (09:15)
[2022-08-02] MEDS: INSULIN GLARGINE 100 UNITS/ML SUBCUT SCH ×2 (09:35→21:36)
[2022-08-02] MEDS: BLOOD SUGAR DIAGNOSTIC STRIP TEST SCH ×3 (11:50→21:23)
[2022-08-02] MEDS: INSULIN LISPRO 100 UNITS/ML SUBCUT SCH ×3 (11:52→21:36)
[2022-08-02 20:00] VITALS: BP 150/85
[2022-08-03] VITALS: BP 127/97
[2022-08-03 04:00] VITALS: BP 121/72
[2022-08-03] MEDS: BLOOD SUGAR DIAGNOSTIC STRIP TEST SCH ×4 (07:54→20:58)
[2022-08-03 08:00] VITALS: BP 134/86
[2022-08-03] MEDS: INSULIN LISPRO 100 UNITS/ML SUBCUT SCH ×4 (08:29→20:58)
[2022-08-03] MEDS: INSULIN GLARGINE 100 UNITS/ML SUBCUT SCH ×2 (10:44→20:58)
[2022-08-03 12:00] VITALS: BP 144/79
[2022-08-03 16:00] VITALS: BP 127/64
[2022-08-03] MEDS: TRAMADOL 50MG TABLET PO PRN ×2 (16:12→23:50)
[2022-08-03 20:00] VITALS: BP 133/68
[2022-08-03] MEDS ORDERED: NALOXONE HCL 0.4MG/ML VIAL IV PRN (22:15)
[2022-08-04] VITALS: BP 139/78
[2022-08-04 04:00] VITALS: BP 116/62
[2022-08-04] MEDS: BLOOD SUGAR DIAGNOSTIC STRIP TEST SCH ×4 (06:45→21:00)
[2022-08-04] MEDS: INSULIN LISPRO 100 UNITS/ML SUBCUT SCH ×4 (07:37→21:00)
[2022-08-04 08:00] VITALS: BP 145/80
[2022-08-04] MEDS: TRAMADOL 50MG TABLET PO PRN (10:46)
[2022-08-04] MEDS: INSULIN GLARGINE 100 UNITS/ML SUBCUT SCH ×2 (11:27→22:00)
[2022-08-04 12:00] VITALS: BP 148/79
[2022-08-04 16:00] VITALS: BP 107/71
[2022-08-04] MEDS ORDERED: CLOTRIMAZOLE 1% VAGINAL CREAM 45GM VG NR (16:30)
[2022-08-04] MEDS ORDERED: MICONAZOLE NITRATE 2% VAGINAL CREAM (7 DAYS) 45GM VG NR (16:30)
[2022-08-04] MEDS ORDERED: LIDOCAINE HCL 1% 20ML VIAL (Pyxis) INJ INFIL ONE (17:30)
[2022-08-04] MEDS ORDERED: LIDOCAINE HCL 1% 10 MG/ML 10ML VIAL INJ NR (18:00)
[2022-08-04] MEDS ORDERED: METHYLPREDNISOLONE ACETATE 40MG/ML VIAL INJ NR (18:00)
[2022-08-04] MEDS ORDERED: LIDOCAINE HCL/EPINEPHRINE 1%-EPI 1:100,000 50 ML VIAL INFIL NR (18:30)
[2022-08-04] MEDS: DIPHENHYDRAMINE 12.5MG/5ML UDC PO PRN (18:35)
[2022-08-04 20:00] VITALS: BP 146/82
[2022-08-04] MEDS ORDERED: CLOTRIMAZOLE 1% VAGINAL CREAM 45GM VG SCH (21:00)
[2022-08-04] MEDS: TRIAMCINOLONE ACETONIDE 0.1% CREAM 15GM TOP SCH (23:13)
[2022-08-04] MEDS: MICONAZOLE NITRATE 2% VAGINAL CREAM (7 DAYS) 45GM VG SCH (23:27)
[2022-08-05] VITALS: BP 140/61
[2022-08-05] MEDS: VITAMINS A AND D OINT TUBE TOP PRN ×2 (00:01→21:09)
[2022-08-05 04:00] VITALS: BP 127/70
[2022-08-05] MEDS: DIPHENHYDRAMINE 12.5MG/5ML UDC PO PRN (07:05)
[2022-08-05] MEDS: INSULIN LISPRO 100 UNITS/ML SUBCUT SCH ×3 (07:43→21:23)
[2022-08-05 08:00] VITALS: BP 146/78
[2022-08-05] MEDS: CELECOXIB 200MG CAPSULE PO SCH (08:07)
[2022-08-05] MEDS: TRIAMCINOLONE ACETONIDE 0.1% CREAM 15GM TOP SCH ×2 (09:00→21:08)
[2022-08-05] MEDS: INSULIN GLARGINE 100 UNITS/ML SUBCUT SCH (10:00)
[2022-08-05 12:00] VITALS: BP 156/82
[2022-08-05 16:00] VITALS: BP 126/72
[2022-08-05 16:22] LABS: BASOPHILS % 0.5 % (0.0-2.0); EOSINOPHILS % 1.6 % (0.0-5.0); HEMATOCRIT. 29.6 % (36.0-48.0); HEMOGLOBIN. 9.5 g/dL (12.0-16.0); LYMPHOCYTES % 13.3 % (20.0-50.0); MEAN CORPUSCULAR VOLUME 77.8 fL (81.0-99.0); MEAN PLATELET VOLUME 7.7 fl (7.4-10.4); MONOCYTES % 7.4 % (2.0-8.0); NEUTROPHILS % 77.2 % (40.0-76.0); PLATELET 278 x1000/uL (130-400); RED BLOOD CELL COUNT 3.81 mill/uL (4.2-5.4); RED CELL DISTRIBUTION WIDTH 17.9 % (11.6-14.6)
[2022-08-05 16:57] LABS: CHLORIDE 100 mEq/L (98-107)
[2022-08-05] MEDS ORDERED: INSULIN LISPRO 100 UNITS/ML SUBCUT NR (18:00)
[2022-08-05] MEDS: BLOOD SUGAR DIAGNOSTIC STRIP TEST SCH ×2 (18:02→21:07)
[2022-08-05] MEDS: MICONAZOLE NITRATE 2% VAGINAL CREAM (7 DAYS) 45GM VG SCH (21:10)
[2022-08-06] VITALS: BP 125/65
[2022-08-06] MEDS: TRAMADOL 50MG TABLET PO PRN (02:17)
[2022-08-06] MEDS: DIPHENHYDRAMINE 12.5MG/5ML UDC PO PRN (02:17)
[2022-08-06 04:00] VITALS: BP 124/76
[2022-08-06] MEDS: BLOOD SUGAR DIAGNOSTIC STRIP TEST SCH ×4 (06:15→21:10)
[2022-08-06 08:00] VITALS: BP 150/71
[2022-08-06] MEDS: CELECOXIB 200MG CAPSULE PO SCH (08:17)
[2022-08-06] MEDS: TRIAMCINOLONE ACETONIDE 0.1% CREAM 15GM TOP SCH ×2 (08:20→21:48)
[2022-08-06] MEDS: INSULIN LISPRO 100 UNITS/ML SUBCUT SCH ×4 (08:27→21:10)
[2022-08-06 09:07] LABS: ANTI-DNA DOUBLE STRANDED QUANT 1 IU/mL (0-9); ANTI-JO 1 ABS <0.2 AI (0.0-0.9); RNP ANTIBODY 0.2 AI (0.0-0.9)
[2022-08-06] MEDS: INSULIN GLARGINE 100 UNITS/ML SUBCUT SCH ×2 (10:48→21:10)
[2022-08-06 12:00] VITALS: BP 156/72
[2022-08-06 16:00] VITALS: BP 144/72
[2022-08-06 20:00] VITALS: BP 139/82
[2022-08-06] MEDS: MICONAZOLE NITRATE 2% VAGINAL CREAM (7 DAYS) 45GM VG SCH (21:14)
[2022-08-07] VITALS: BP 154/72
[2022-08-07 04:00] VITALS: BP_SYST 151; BP_SYST 152; BP_DIAS 79; BP_DIAS 82
[2022-08-07] MEDS: INSULIN LISPRO 100 UNITS/ML SUBCUT SCH ×4 (07:50→21:57)
[2022-08-07 08:00] VITALS: BP 143/74
[2022-08-07] MEDS: BLOOD SUGAR DIAGNOSTIC STRIP TEST SCH ×4 (08:16→21:00)
[2022-08-07] MEDS: CELECOXIB 200MG CAPSULE PO SCH (08:48)
[2022-08-07 09:07] LABS: ALDOLASE 8.8 U/L (3.3-10.3)
[2022-08-07] MEDS: TRIAMCINOLONE ACETONIDE 0.1% CREAM 15GM TOP SCH ×2 (09:09→21:47)
[2022-08-07] MEDS: INSULIN GLARGINE 100 UNITS/ML SUBCUT SCH ×2 (11:17→21:58)
[2022-08-07 12:00] VITALS: BP 145/76
[2022-08-07 16:00] VITALS: BP 153/76
[2022-08-07 19:10] LABS: ANA IFA Negative (.); ANGIOTENSION CONVERTING ENZYME 49 U/L (14-82); ANTI-MYELOPEROXIDASE AB < 0.2 units (0.0-0.9); ANTI-PROTEINASE 3 ABS < 0.2 units (0.0-0.9)
[2022-08-07 20:00] VITALS: BP 124/63
[2022-08-07] MEDS: MICONAZOLE NITRATE 2% VAGINAL CREAM (7 DAYS) 45GM VG SCH (21:47)
[2022-08-08] VITALS: BP 137/85
[2022-08-08 08:40] VITALS: BP 131/77
[2022-08-08] MEDS: CELECOXIB 200MG CAPSULE PO SCH (09:31)
[2022-08-08] MEDS: INSULIN GLARGINE 100 UNITS/ML SUBCUT SCH (09:35)
[2022-08-10 13:07] LABS: ATYPICAL P-ANCA 1:40 titer (Neg:<1:20); CYTOPLASMIC C-ANCA <1:20 titer (Neg:<1:20); PERINUCLEAR P-ANCA <1:20 titer (Neg:<1:20)
== END 2022-08-08 09:45 | DRG 264 ==
LOC: ER 11:35 → EDBEDREQ 16:57 → MICUSO 17:24 → EDBEDREQTM 17:31 → EDBEDREQ 17:31 → 6EST 08-02 17:24
PROVIDERS: ADMIT Internal Medicine Pulmonary Disease; ATTEND Internal Medicine Pulmonary Disease
PROC: 0JBP0ZZ Excision of Left Lower Leg Subcutaneous Tissue and Fascia, Open Approach (ICD-10-PCS; principal; 2022-08-04)
PROC: 0JBN0ZZ Excision of Right Lower Leg Subcutaneous Tissue and Fascia, Open Approach (ICD-10-PCS; 2022-08-04)
PROC: 3E0U33Z Introduction of Anti-inflammatory into Joints, Percutaneous Approach (ICD-10-PCS; 2022-08-04)
PROC: 3E0U33Z Introduction of Anti-inflammatory into Joints, Percutaneous Approach (ICD-10-PCS; 2022-08-04)
PROC: 3E0U3BZ Introduction of Anesthetic Agent into Joints, Percutaneous Approach (ICD-10-PCS; 2022-08-04)
PROC: 3E0U3BZ Introduction of Anesthetic Agent into Joints, Percutaneous Approach (ICD-10-PCS; 2022-08-04)
DX: E11.51 Type 2 diabetes mellitus with diabetic peripheral angiopathy without gangrene (principal); E43 Unspecified severe protein-calorie malnutrition; E87.1 Hypo-osmolality and hyponatremia; M17.0 Bilateral primary osteoarthritis of knee; E11.65 Type 2 diabetes mellitus with hyperglycemia; E03.9 Hypothyroidism, unspecified; D64.9 Anemia, unspecified; Z20.822 Contact with and (suspected) exposure to COVID-19; E78.5 Hyperlipidemia, unspecified; S81.802A Unspecified open wound, left lower leg, initial encounter; S81.801A Unspecified open wound, right lower leg, initial encounter; M25.462 Effusion, left knee; M16.0 Bilateral primary osteoarthritis of hip; M25.461 Effusion, right knee; I73.00 Raynaud's syndrome without gangrene; Z83.3 Family history of diabetes mellitus; Z88.2 Allergy status to sulfonamides; Z79.899 Other long term (current) drug therapy; Z68.36 Body mass index [BMI] 36.0-36.9, adult; Z79.4 Long term (current) use of insulin; X58.XXXA Exposure to other specified factors, initial encounter; Y93.89 Activity, other specified; Y92.89 Other specified places as the place of occurrence of the external cause; Y99.8 Other external cause status
CPT/HCPCS: 36415; 36600; 71045; 72100; 73560; 76881; 80048; 80053; 82010; 82085; 82164; 82375; 82550; 82595; 82805; 82962; 83520; 83540; 83550; 83880; 83930; 84484; 84550; 85025; 85651; 86160; 86225; 86235; 86256; 86431; 86880; 87426; 93005; 93923; 97162; 97166; 97530; 99285; A4565; J1030; J1815; J3490; J7030; Q0163